=== PATIENT | male | born 1965 | race Caucasian/White ===

== ENCOUNTER 2016-12-27 06:41 | Inpatient (IN) | payer OTHER ==
[2016-12-27] MEDS ORDERED: ALBUTEROL NEB 2.5 MG/3 ML INH STA (07:23)
[2016-12-27] MEDS ORDERED: ALBUTEROL NEB 2.5 MG/3 ML INH ONE (07:33)
[2016-12-27] MEDS ORDERED: HYDROmorphone 1 MG/ML SYRINGE IVP STA ×2 (08:18→09:06)
[2016-12-27] MEDS ORDERED: HYDROmorphone 1 MG/ML SYRINGE ONE ×2 (08:19→09:05)
[2016-12-27] MEDS ORDERED: ONDANSETRON 4 MG/2 ML VIAL ONE (08:20)
[2016-12-27] MEDS ORDERED: ONDANSETRON 4 MG/2 ML VIAL IVP STA (08:20)
[2016-12-27] MEDS ORDERED: LORazepam 2 MG/ML SYRINGE IVP STA (09:06)
[2016-12-27] MEDS ORDERED: LORazepam 2 MG/ML SYRINGE ONE (09:06)
[2016-12-27] MEDS ORDERED: LIDOCAINE 1%-EPI 1:100000 20 ML MDV ONE (09:18)
[2016-12-27] MEDS ORDERED: NAPROXEN 250 MG TABLET PO PRN (10:04)
[2016-12-27] MEDS ORDERED: NYSTATIN CREAM 15 GM TUBE TOP PRN (10:04)
[2016-12-27] MEDS ORDERED: ACETAMINOPHEN 325 MG TABLET PO PRN (10:05)
[2016-12-27] MEDS ORDERED: ONDANSETRON 4 MG/2 ML VIAL IVP PRN (10:05)
[2016-12-27] MEDS ORDERED: oxyCODONE 5 MG TABLET PO PRN ×2 (10:05)
[2016-12-27] MEDS ORDERED: TRIAMCINOLONE 0.1% CREAM 15 GM TUBE TOP PRN (11:31)
[2016-12-27] MEDS ORDERED: LIDOCAINE 2% 10 ML MDV SUBQ ONE (11:35)
[2016-12-27] MEDS ORDERED: HYDROmorphone 1 MG/ML SYRINGE IVP ONE (11:35)
[2016-12-27] MEDS ORDERED: LIDOCAINE MPF 2%-EPI 1:200000 20 ML VIAL ID ONE ×2 (12:00)
[2016-12-27] MEDS: LISINOPRIL 5 MG TABLET PO SCH (12:48)
[2016-12-27] MEDS: INSULIN ASPART 300 UNIT/3 ML PEN SUBQ SCH ×3 (12:48→21:24)
[2016-12-27] MEDS: buPROPion XL 150 MG TABLET PO SCH (12:48)
[2016-12-27] MEDS: ASPIRIN EC 81 MG TABLET PO SCH (12:49)
[2016-12-27] MEDS: hydroCHLOROthiazide 25 MG TABLET PO SCH (12:49)
[2016-12-27] MEDS: ATENOLOL 25 MG TABLET PO SCH (12:49)
[2016-12-27] MEDS: SODIUM CHLORIDE FLUSH 0.9% 10 ML SYRINGE IVP SCH ×2 (13:15→21:25)
[2016-12-27] MEDS: MORPHINE 2 MG/ML SYRINGE IVP PRN ×2 (13:15→15:33)
[2016-12-27] MEDS: SODIUM CHLORIDE FLUSH 0.9% 10 ML SYRINGE IVP PRN ×4 (15:33→22:27)
[2016-12-27] MEDS: HYDROmorphone 1 MG/ML SYRINGE IVP PRN ×2 (16:29→22:27)
[2016-12-27] MEDS: FORMOTEROL FUMARATE NEB 20 MCG/2 ML INH SCH (19:35)
[2016-12-27] MEDS: BUDESONIDE 0.5 MG/2 ML NEB INH SCH (19:35)
[2016-12-27] MEDS: ATORVASTATIN 40 MG TABLET PO SCH (21:23)
[2016-12-28] MEDS: HYDROmorphone 1 MG/ML SYRINGE IVP PRN ×7 (00:40→22:32)
[2016-12-28] MEDS: PANTOPRAZOLE 40 MG TABLET PO SCH (06:31)
[2016-12-28] MEDS: SODIUM CHLORIDE FLUSH 0.9% 10 ML SYRINGE IVP SCH ×3 (06:32→20:52)
[2016-12-28] MEDS: FORMOTEROL FUMARATE NEB 20 MCG/2 ML INH SCH ×2 (07:10→20:00)
[2016-12-28] MEDS: BUDESONIDE 0.5 MG/2 ML NEB INH SCH ×2 (07:10→20:00)
[2016-12-28] MEDS: ALBUTEROL NEB 2.5 MG/3 ML INH PRN (07:10)
[2016-12-28] MEDS: INSULIN ASPART 300 UNIT/3 ML PEN SUBQ SCH ×4 (08:13→20:53)
[2016-12-28] MEDS: ceFAZolin 2 GM/50 ML 50 ML IV SCH ×2 (09:23→18:06)
[2016-12-28] MEDS ORDERED: TALC IX ONE (09:30)
[2016-12-28] MEDS: buPROPion XL 150 MG TABLET PO SCH (09:30)
[2016-12-28] MEDS ORDERED: BUFFERED LIDOCAINE 10 ML SYRINGE SUBQ ONE (09:30)
[2016-12-28] MEDS ORDERED: HYDROmorphone 1 MG/ML SYRINGE IVP ONE (09:30)
[2016-12-28] MEDS: ATENOLOL 25 MG TABLET PO SCH (09:31)
[2016-12-28] MEDS: LISINOPRIL 5 MG TABLET PO SCH (09:31)
[2016-12-28] MEDS: MULTIVITAMIN TABLET PO SCH (09:31)
[2016-12-28] MEDS: ENOXAPARIN 40 MG/0.4 ML SYRINGE SUBQ SCH (09:31)
[2016-12-28] MEDS: hydroCHLOROthiazide 25 MG TABLET PO SCH (09:31)
[2016-12-28] MEDS: ASPIRIN EC 81 MG TABLET PO SCH (09:31)
[2016-12-28] MEDS: POLYETHYLENE GLYCOL 3350 17 GM PACKET PO SCH (10:50)
[2016-12-28] MEDS: SODIUM CHLORIDE FLUSH 0.9% 10 ML SYRINGE IVP PRN (11:22)
[2016-12-28] MEDS: ATORVASTATIN 40 MG TABLET PO SCH (20:52)
[2016-12-29] MEDS: ceFAZolin 2 GM/50 ML 50 ML IV SCH ×2 (01:45→09:39)
[2016-12-29] MEDS: SODIUM CHLORIDE FLUSH 0.9% 10 ML SYRINGE IVP SCH ×3 (01:45→14:36)
[2016-12-29] MEDS: PANTOPRAZOLE 40 MG TABLET PO SCH (05:46)
[2016-12-29] MEDS: HYDROmorphone 1 MG/ML SYRINGE IVP PRN ×3 (05:46→14:35)
[2016-12-29] MEDS: ALBUTEROL NEB 2.5 MG/3 ML INH PRN (07:10)
[2016-12-29] MEDS: BUDESONIDE 0.5 MG/2 ML NEB INH SCH (07:10)
[2016-12-29] MEDS: INSULIN ASPART 300 UNIT/3 ML PEN SUBQ SCH (09:25)
[2016-12-29] MEDS: ASPIRIN EC 81 MG TABLET PO SCH (09:27)
[2016-12-29] MEDS: buPROPion XL 150 MG TABLET PO SCH (09:27)
[2016-12-29] MEDS: ATENOLOL 25 MG TABLET PO SCH (09:27)
[2016-12-29] MEDS: MULTIVITAMIN TABLET PO SCH (09:27)
[2016-12-29] MEDS: ENOXAPARIN 40 MG/0.4 ML SYRINGE SUBQ SCH (09:27)
[2016-12-29] MEDS: hydroCHLOROthiazide 25 MG TABLET PO SCH (09:28)
[2016-12-29] MEDS: LISINOPRIL 5 MG TABLET PO SCH (09:28)
[2016-12-29] MEDS: POLYETHYLENE GLYCOL 3350 17 GM PACKET PO SCH (09:28)
[2016-12-29] MEDS: SODIUM CHLORIDE FLUSH 0.9% 10 ML SYRINGE IVP PRN (10:26)
[2016-12-29] MEDS ORDERED: INSULIN ASPART 300 UNIT/3 ML PEN SUBQ SCH ×2 (12:30→17:00)
[2016-12-29] MEDS: FORMOTEROL FUMARATE NEB 20 MCG/2 ML INH SCH (15:33)
== END 2016-12-29 15:25 | disposition short-term general hospital (02) | DRG 201 ==
PROC: 0W9B30Z Drainage of Left Pleural Cavity with Drainage Device, Percutaneous Approach (ICD-10-PCS; principal; 2016-12-27)
DX: J93.83 Other pneumothorax (principal); E11.9 Type 2 diabetes mellitus without complications; J43.9 Emphysema, unspecified; I10 Essential (primary) hypertension; G47.33 Obstructive sleep apnea (adult) (pediatric); K21.9 Gastro-esophageal reflux disease without esophagitis; E78.5 Hyperlipidemia, unspecified; F32.9 Major depressive disorder, single episode, unspecified; K42.9 Umbilical hernia without obstruction or gangrene; Z87.891 Personal history of nicotine dependence; Z79.82 Long term (current) use of aspirin; Z79.899 Other long term (current) drug therapy; Z79.84 Long term (current) use of oral hypoglycemic drugs; Z79.51 Long term (current) use of inhaled steroids

== ENCOUNTER 2017-01-27 10:57 | Outpatient (CLI) | payer OTHER | END 2017-01-27 10:58 | disposition home or self-care (01) | DX: G47.33 Obstructive sleep apnea (adult) (pediatric) (principal) ==

== ENCOUNTER 2017-02-14 19:35 | Outpatient (CLI) | payer OTHER | END 2017-02-14 19:36 | disposition home or self-care (01) | DX: G47.33 Obstructive sleep apnea (adult) (pediatric) (principal); Z68.35 Body mass index [BMI] 35.0-35.9, adult ==

== ENCOUNTER 2017-03-04 15:36 | Outpatient (CLI) | payer OTHER | END 2017-03-04 15:37 | disposition home or self-care (01) | LOC: SC 15:36 | PROVIDERS: ATTEND Nurse Practitioner Family | DX: G47.33 Obstructive sleep apnea (adult) (pediatric) (principal) | CPT/HCPCS: 99212; 99214 ==

== ENCOUNTER 2017-03-06 08:15 | Outpatient (CLI) | payer OTHER ==
--- NOTE | 2017-03-06 10:14 | Ultrasound Report ---
LIMITED ABDOMINAL ULTRASOUND: 03/06/2017 CLINICAL HISTORY: The patient has elevated liver function tests. 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 FINDINGS: The liver appears mildly enlarged with a length of 20.7. The parenchymal pattern is consis tent with benign fatty infiltration of the liver. No masses are seen. Normal hepatopetal flow is seen in the portal vein. The gallbladder shows some areas of very slight wall thickening with the gallbladder wall measuring 4 .8 mm in these areas. There is no enhanced vascular flow about these areas. No calculi are detected w ithin the gallbladder. This mild irregular wall thickening most likely is of no clinical significance especially since patient is not tender in the right upper quadrant of the abdomen. The common bile duct has a normal diameter of 3.9 mm. The right kidney measures 13.5 cm without pyelocaliceal system dilatation. Tiny amount of right pleural fluid is seen. IMPRESSION: 1. MILD HEPATOMEGALY IS NOTED WITH THE PARENCHYMAL PATTERN CONSISTENT WITH BENIGN FATTY INFILTRATION. 2. TINY NONSPECIFIC RIGHT PLEURAL EFFUSION IS NOTED. JOB #: [id number] EXT JOB #:[id number]
== END 2017-03-06 08:16 | disposition home or self-care (01) ==
LOC: DI 08:15
PROVIDERS: ATTEND Internal Medicine
DX: R16.0 Hepatomegaly, not elsewhere classified (principal); J90 Pleural effusion, not elsewhere classified
CPT/HCPCS: 76705

== ENCOUNTER 2017-05-20 15:12 | Outpatient (CLI) | payer OTHER | END 2017-05-20 15:13 | disposition home or self-care (01) | LOC: SC 15:12 | PROVIDERS: ATTEND Nurse Practitioner Family | DX: G47.33 Obstructive sleep apnea (adult) (pediatric) (principal) | CPT/HCPCS: 99212; 99214 ==

== ENCOUNTER 2018-01-26 15:00 | Outpatient (CLI) | payer OTHER | END 2018-01-26 15:01 | disposition home or self-care (01) | LOC: SC 15:00 | PROVIDERS: ATTEND Internal Medicine Pulmonary Disease | DX: G47.33 Obstructive sleep apnea (adult) (pediatric) (principal) | CPT/HCPCS: 99212; 99213 ==

== ENCOUNTER 2018-05-27 14:33 | Outpatient (CLI) | payer OTHER ==
--- NOTE | 2018-05-27 22:10 | MRI Report ---
Procedure Date: 05/27/2018 Accession Number: [id number] / [id number] Procedure: MRI - Brain W/O CPT Code: FULL RESULT: EXAM: MRI BRAIN WITHOUT CONTRAST EXAM DATE: 05/27/2018 03:45 PM. CLINICAL HISTORY: 53-year-old with history of traumatic brain injury years ago now with headache COMPARISON: MR cervical spine 06/27/2006. TECHNIQUE: Multiplanar, multisequence T1-weighted and fluid-sensitive MR sequences of the brain were performed. Sequences optimized for routine evaluation. Other: None. IV Contrast: None. FINDINGS: Brain Volume: Normal for age. Parenchyma/Dura: No acute parenchymal hemorrhage, mass, or midline shift. There is minimal scattered bilateral areas of T2/FLAIR signal hyperintensity seen predominantly in a peripheral distribution. No areas of restricted diffusion seen to suggest acute infarct. No abnormal areas of hemosiderin deposition. Ventricles/Cisterns: Slight asymmetry to the lateral ventricles with a larger right lateral ventricle compared to left which may be physiologic. Overall ventricular size and configuration appear appropriate for age. No abnormal extra-axial fluid collection or hemorrhage. Orbits: Symmetric and unremarkable. Sella [place]: The pituitary gland, cavernous sinuses, suprasellar cistern and optic chiasm are unremarkable. IAC: Symmetric and unremarkable. Vasculature: Normal signal flow void is seen in the major arterial structures at the skull base. Sinuses: Small left maxillary mucosal retention cyst versus polyp. Mastoid air cells and middle ear cavities are clear. Bones: No focal pathologic appearing marrow signal changes. Other: None. IMPRESSION: 1. No acute infarct, intracranial hemorrhage, mass, hydrocephalus, or midline shift. 2. Minimal white matter changes seen predominantly involving the peripheral white matter of the frontal and parietal lobes. Findings are nonspecific and may represent sequela of prior migraines and/or sequela of chronic small vessel ischemic disease. RADIA
== END 2018-05-27 14:34 | disposition home or self-care (01) ==
LOC: DI 14:33
PROVIDERS: ATTEND Internal Medicine
DX: R51 Headache (principal)
CPT/HCPCS: 70551

== ENCOUNTER 2019-03-08 16:28 | Outpatient (CLI) | payer OTHER ==
--- NOTE | 2019-03-09 12:42 | MRI Report ---
Reason: PAIN IN RIGHT HIP Procedure Date: 03/08/2019 Accession Number: [id number] / [id number] Procedure: MRI - Hip RT W/O CPT Code: FULL RESULT: EXAM: RIGHT HIP MRI WITHOUT CONTRAST EXAM DATE: 03/08/2019 05:21 PM. CLINICAL HISTORY: Pain in right hip. COMPARISON: None. TECHNIQUE: Multiplanar, multisequence T1-weighted and fluid-sensitive, small fyezt-vu-wkiw sequences of the hip and large qfmsd-[id number]-gtok sequences of the pelvis without contrast. Other: None. FINDINGS: Bones and articular surfaces: No significant hip joint effusion. Mild cartilage thinning and surface irregularity in the right hip superiorly. Small amount of subchondral edema at the superior acetabulum. High signal within the substance of the superior labrum without appreciable articular surface extension. No evidence of acute fracture or stress reaction. No evidence of femoral head AVN. Sacroiliac joints appear symmetric and unremarkable. Pubic symphysis unremarkable. Musculotendinous structures: Edema and fluid signal associated with the distal fibers of the right gluteus medius consistent with tendinosis and small low-grade partial tear. There is also a small amount of edema and some soft tissue calcification associated with the right gluteus minimus insertion. Remaining musculotendinous structures appear intact. No significant muscle atrophy. IMPRESSION: 1. Tendinosis and low-grade partial tear at the right gluteus medius insertion. Mild tendinosis at the gluteus minimus insertion. 2. Mild right hip osteoarthritis. 3. Increased intrasubstance signal within the superior labrum may reflect intrasubstance degeneration. No definite articular surface extension. RADIA
== END 2019-03-08 16:29 | disposition home or self-care (01) ==
LOC: DI 16:28
PROVIDERS: ATTEND Internal Medicine
DX: M16.11 Unilateral primary osteoarthritis, right hip (principal); S76.011A Strain of muscle, fascia and tendon of right hip, initial encounter

== ENCOUNTER 2019-03-12 14:24 | Emergency (ER) | payer OTHER ==
--- NOTE | 2019-03-12 14:47 | ED Physician Documentation ---
PD HPI DYSPNEA - Stated complaint Stated Complaint: SOA/RIB PX - Chief complaint Chief Complaint: Resp - History obtained from History obtained from: Patient, Family - History of Present Illness Timing - onset: Yesterday (4 PM) Timing - onset during: Rest Timing - duration: Days (1) Timing - details: Abrupt onset Associated symptoms: Chest pain / discomfort. No: Fever, Cough, Hemoptysis, Wheezing, Palpitations, Diaphoresis, Bilateral edema, Anxiety Similar symptoms before: Diagnosis (History of spontaneous pneumothorax in the past. Most recent was April 2017. He actually had to be transferred to [facility] at that time because the lung would not inflate after the initial chest tube was placed and they had to place a second chest tube.) Recently seen: Not recently seen - Additional information Additional information: This is a 53-year-old man who presents with his complains that he had the sudden onset of sharp left sided chest pain about 4 PM yesterday. It feels just like when he had a spontaneous pneumothorax in the past. He said 5 on the left and one on the right. Feels mildly short of breath and it hurts to take a deep breath. He denies any preceding symptoms of stuffy nose or sore throat. He does have emphysema uses inhalers when necessary. He quit smoking 10 years ago. He denies current palpitations, dizziness, peripheral edema or fever. Denies history of heart disease. Review of Systems Constitutional: denies: Fever Nose: denies: Rhinorrhea / runny nose, Congestion Cardiac: reports: Chest pain / pressure. denies: Palpitations, Pedal edema Respiratory: reports: Dyspnea. denies: Cough GI: denies: Nausea PD PAST MEDICAL HISTORY - Past Medical History Cardiovascular: Hypertension, High cholesterol Respiratory: COPD, Emphysema, Other Endocrine/Autoimmune: Type 2 diabetes GI: GERD : None HEENT: None Psych: None Musculoskeletal: None Derm: None - Past Surgical History Past Surgical History: No - Present Medications Home Medications: Ambulatory Orders Medication Instructions Recorded Confirmed Albuterol [Ventolin Hfa] 2 puffs INH PRN PRN 12/28/13 03/12/19 Atenolol [Tenormin] 25 mg PO DAILY 12/28/13 03/12/19 Atorvastatin Calcium [Lipitor] 40 mg PO QPM 12/28/13 03/12/19 hydroCHLOROthiazide [Hydrodiuril] 25 mg PO DAILY 12/28/13 03/12/19 Aspirin [Aspir 81] 81 mg PO DAILY 07/04/15 03/12/19 Sitagliptin Phos/Metformin HCl 1 tab PO BID 05/07/16 03/12/19 [Janumet 50-1,000 mg Tablet] Fluticasone/Salmeterol [Advair 50 - 250 mcg INH BID 05/08/16 03/12/19 250-50 Diskus] Lisinopril 5 mg PO DAILY 05/08/16 03/12/19 Multivitamin [Multivitamins] 1 tab PO DAILY 05/08/16 03/12/19 Nystatin/Triamcin 1 applic TOP . NEEDED PRN 05/08/16 03/12/19 [Nystatin-Triamcinolone Ointm] Naproxen 500 mg PO BID PRN #30 tablet. 05/16/16 03/12/19 Aspirin Chewable [[place] 81 mg PO DAILY 03/12/19 03/12/19 Aspirin] Dulaglutide [Trulicity] 1.5 mg SQ OAW 03/12/19 03/12/19 Empagliflozin [Jardiance] 10 mg PO DAILY 03/12/19 03/12/19 Insulin Glargine [Lantus Solostar] 45 unit SQ BID 03/12/19 03/12/19 Ipratropium/Albuterol Sulfate 3 ml IH PRN PRN 03/12/19 03/12/19 [Iprat-Albut 0.5-3(2.5) mg/3 ml] Pantoprazole Sodium [Protonix] 20 mg PO DAILY 03/12/19 03/12/19 Tiotropium [place] [Spiriva 2.5 mcg PO DAILY 03/12/19 03/12/19 Respimat] traMADol [Ultram] 50 mg PO Q4-6H #10 tablet 03/12/19 - Allergies Allergies/Adverse Reactions: Allergies Allergy/AdvReac Type Severity Reaction Status Date / Time No Known Drug Allergies Allergy Verified 03/12/19 14:37 - Social History Does the pt smoke?: No Smoking Status: Former smoker Does the pt drink ETOH?: Yes Does the pt have substance abuse?: No - Immunizations Immunizations are current?: Yes - POLST Patient has POLST: No PD ED PE NORMAL - Vitals Vital signs reviewed: Yes - General General: Alert and oriented X 3, No acute distress, Well developed/nourished - HEENT HEENT: Atraumatic, Moist mucous membranes - Neck Neck: No adenopathy - Cardiac Cardiac: RRR, No murmur - Respiratory Respiratory: No respiratory distress, Other (Diminished breath sounds at the apices bilaterally.) - Abdomen Abdomen: Normal bowel sounds, Soft, Non tender - Derm Derm: Normal color, No rash - Neuro Neuro: Alert and oriented X 3, Normal speech - Psych Psych: Normal mood, Normal affect Results - Vitals Vitals: Vital Signs - 24 hr 03/12/19 03/12/19 03/12/19 14:34 14:43 15:05 Temperature 36.0 C L Heart Rate 76 76 82 Respiratory 16 16 20 Rate Blood Pressure 124/77 124/77 124/90 H O2 Saturation 91 L 94 94 03/12/19 03/12/19 03/12/19 15:30 16:00 16:30 Temperature Heart Rate 70 66 71 Respiratory 12 14 12 Rate Blood Pressure 124/90 H 119/72 127/74 O2 Saturation 93 93 92 Oxygen O2 Source Room air - EKG (time done) 1432 Rate: Rate (enter#) Rhythm: NSR [place]: RAD Intervals: Normal [place], Wide QRS QRS: Normal Ischemia: Normal ST segments Compare to prior EKG: Unchanged from prior EKG - Labs Labs: Laboratory Tests 03/12/19 03/12/19 03/12/19 14:55 14:55 14:55 WBC 5.3 RBC 4.47 L Hgb 14.8 Hct 42.2 MCV 94.3 H MCH 33.0 H MCHC 35.0 RDW 13.9 Plt Count 116 L MPV 8.2 Neut # (Auto) 3.0 Lymph # (Auto) 1.7 [place] # (Auto) 0.4 Eos # (Auto) 0.1 Baso # (Auto) 0.0 Absolute Nucleated RBC 0.00 Nucleated RBC % 0.1 PT 13.5 H INR 1.2 Sodium 136 Potassium 4.0 Chloride 100 L Carbon Dioxide 22 Anion Gap 14.0 H BUN 14 Creatinine 0.9 Estimated GFR (MDRD) 88 L Glucose 243 H Calcium 9.2 Troponin I 03/12/19 14:55 WBC RBC Hgb Hct MCV MCH MCHC RDW Plt Count MPV Neut # (Auto) Lymph # (Auto) [place] # (Auto) Eos # (Auto) Baso # (Auto) Absolute Nucleated RBC Nucleated RBC % PT INR Sodium Potassium Chloride Carbon Dioxide Anion Gap BUN Creatinine Estimated GFR (MDRD) Glucose Calcium Troponin I < 0.04 - Rads (name of study) CXR Radiology: EMP read indepedently, EMP read contemporaneously (Hyperinflated lungs with some flattening of the diaphragms but no obvious pneumothorax. There are some blebs noted in the apices of both lungs.) PD MEDICAL DECISION MAKING - ED course Complexity details: re-evaluated patient, d/w patient, d/w family ED course: 1513: The x-ray does not show a clear indication of any pneumothorax. Especially compared to the one 2 years ago the pneumothorax was clearly evident. Went back into discuss this with the family and he mentioned that he had an MRI done on his hip a couple of days ago and had to lay there with his arms up over his head. He notices the pain hurts to touch and movement of that left arm. He definitely has some point tenderness along the left lateral anterior chest wall. He has not taken any naproxen today we will give him an injection of Toradol which is been tremendously helpful in the past and waiting the official radiology report. Of note I did review this patient's previous records and he has had significant blebs and loculations with pneumothorax in the past. Most recently he was transferred to [facility] in 2017 to have cardiothoracic surgery place a chest tube under video visualization. 1632:Patient's initial troponin is negative. His glucose is a little elevated but CBC and BMP are essentially normal. He was given Toradol injection and said that the pain is essentially gone when he is moving his arm around still little tender to touch. We discussed getting a 3-hour troponin which she initially agreed to. subsequently called me back into the room and stated he did not want to stay he wanted to be discharged. After discussion with him he feels pretty certain that this pain is muscular skeletal in origin. His initial troponin is normal and the pain has been there for longer than 4-hour. So I feel that it would be safe for him to be discharged home at this time and will not ask him to sign out AGAINST MEDICAL ADVICE even though he is declining further work-up at this time.He can use his Aleve at home. They did request a prescription for tramadol and I will give a limited supply.He should avoid activity that causes pain. Departure - Departure Disposition: 01 Home, Self Care Clinical Impression: Atypical chest pain Condition: Good Instructions: ED Chest Pain Atypical Unkn Cause Follow-Up: ROBERT RAMOS MD [Primary Care Provider] - Prescriptions: traMADol [Ultram] 50 mg PO Q4-6H #10 tablet Comments: You have declined to stay for a repeat troponin test. Your pain appears to be related to musculoskeletal at this time. I would take the Aleve you have at home twice a day for the next 2 to 3 days, avoid any activity that causes discomfort and you have a prescription for a few tramadol tablets if needed that can be taken for pain. If you begin to experience shortness of breath, sweatiness, dizziness or nausea associated with this she should return for reevaluation.
[2019-03-12] MEDS ORDERED: MORPHINE 2 MG/ML SYRINGE IVP STA (15:00)
[2019-03-12] MEDS ORDERED: ONDANSETRON 4 MG/2 ML VIAL IVP STA (15:00)
[2019-03-12 15:08] LABS: BASOPHILS % (AUTO) 0.4 %; EOSINOPHILS # (AUTO) 0.1 10^3/uL (0.0-0.7); EOSINOPHILS % (AUTO) 2.6 %; HGB - HEMOGLOBIN 14.8 g/dL (14.0-18.0); LYMPHOCYTES # (AUTO) 1.7 10^3/uL (1.5-3.5); MEAN CORPUSCULAR VOLUME 94.3 fL (80.0-94.0); MEAN PLATELET VOLUME 8.2 fL (7.4-11.4); MONOCYTES # (AUTO) 0.4 10^3/uL (0.0-1.0); MONOCYTES % (AUTO) 8.4 %; NEUTROPHILS % (AUTO) 56.6 %; PLT - PLATELET COUNT 116 10^3/uL (130-450); RED BLOOD COUNT 4.47 10^6/uL (4.70-6.10); RED CELL DISTRIBUTION WIDTH 13.9 % (12.0-15.0); WHITE BLOOD COUNT 5.3 x10^3/uL (4.8-10.8)
[2019-03-12 15:11] LABS: CALCIUM 9.2 mg/dL (8.5-10.3); CREATININE 0.9 mg/dL (0.6-1.2)
[2019-03-12] MEDS ORDERED: KETOROLAC 30 MG/ML VIAL IVP STA (15:12)
--- NOTE | 2019-03-12 15:13 | XRAY Report ---
Reason: chest pain Procedure Date: 03/12/2019 Accession Number: [id number] / [id number] Procedure: XR - Chest 1 View X-Ray CPT Code: 11717 FULL RESULT: EXAM: CHEST RADIOGRAPHY EXAM DATE: 03/12/2019 03:05 PM. CLINICAL HISTORY: Chest pain. COMPARISON: CHEST 2 VIEW PA/LAT 12/28/2016 9:48 AM. TECHNIQUE: 1 view. FINDINGS: Lungs/Pleura: Bilateral areas of scarring. Biapical pleural thickening. No focal opacities evident. No pleural effusion. Hyperlucent lung deng with flattened hemidiaphragms. Mediastinum: Within exam limitations, the cardiomediastinal contour is normal. Other: DJD spine IMPRESSION: COPD RADIA
[2019-03-12 15:15] LABS: INR 1.2 (0.8-1.2); PT - PROTHROMBIN TIME 13.5 secs (9.9-12.6)
[2019-03-12 16:32] VITALS: BP 127/74
== END 2019-03-12 16:41 | disposition home or self-care (01) ==
LOC: ED 14:24
DX: R07.89 Other chest pain (principal); I10 Essential (primary) hypertension; E78.00 Pure hypercholesterolemia, unspecified; J43.9 Emphysema, unspecified; E11.9 Type 2 diabetes mellitus without complications; K21.9 Gastro-esophageal reflux disease without esophagitis; Z79.51 Long term (current) use of inhaled steroids; Z79.82 Long term (current) use of aspirin; Z79.4 Long term (current) use of insulin; Z87.891 Personal history of nicotine dependence
CPT/HCPCS: 36415; 71045; 80048; 84484; 85025; 85610; 93005; 96374; 96375; 99283; 99284; J2270

== ENCOUNTER 2020-02-13 17:27 | Emergency (ER) | payer OTHER ==
--- NOTE | 2020-02-13 18:12 | XRAY Report ---
Reason: chest pain, R sided. history of spontaneous ptx. Procedure Date: 02/13/2020 Accession Number: [id number] / [id number] Procedure: XR - Chest 1 View X-Ray CPT Code: 08851 Final Report FULL RESULT: EXAM: CHEST RADIOGRAPHY EXAM DATE: 02/13/2020 05:59 PM. CLINICAL HISTORY: Chest pain, R sided. history of spontaneous ptx. COMPARISON: CHEST 1 VIEW 03/12/2019 2:51 PM. TECHNIQUE: 1 view. FINDINGS: Lungs/Pleura: There is a linear bandlike density of scar in the right apex. Negative for pneumothorax. There are increasing layering basilar opacities. Mediastinum: The heart size appears unchanged. The trachea is midline. Other: None. IMPRESSION: 1. Suspicious for developing layering basilar pleural effusions. 2. Negative for pneumothorax. 3. Apical emphysema and/or scarring. RADIA
--- NOTE | 2020-02-13 18:43 | ED Physician Documentation ---
History of Present Illness - Stated complaint Stated Complaint: LT SIDE PAIN - Chief complaint Chief Complaint: Cardiac - History obtained from History obtained from: Patient - History of Present Illness Timing: How many weeks ago (2) Pain level max: 8 Pain level now: 7 - Additonal information Additional information: 54-year-old male presents the emergency department with right-sided chest wall and back pain for the past 2 weeks. Has a history of bullous emphysema and is concerned that he may have another pneumothorax. Worse with deep breathing. Better with rest. Tramadol helps as well. He is now out of tramadol. No vomiting. No dyspnea. No nausea. No sweating. No fever. No cough Review of Systems Constitutional: denies: Fever, Chills Ears: denies: Ear pain Nose: denies: Rhinorrhea / runny nose, Congestion Respiratory: denies: Cough GI: denies: Vomiting, Diarrhea Skin: denies: Rash Musculoskeletal: denies: Neck pain, Back pain Neurologic: denies: Headache PD PAST MEDICAL HISTORY - Past Medical History Cardiovascular: Hypertension, High cholesterol Respiratory: COPD, Emphysema, Other Endocrine/Autoimmune: Type 2 diabetes GI: GERD : None HEENT: None Psych: None Musculoskeletal: None Derm: None Other Past Medical History: Spontaneous pneumothorax x6 - Past Surgical History Past Surgical History: No - Present Medications Home Medications: Ambulatory Orders Medication Instructions Recorded Confirmed Albuterol [Ventolin Hfa] 2 puffs INH PRN PRN 12/28/13 03/12/19 Atorvastatin Calcium [Lipitor] 40 mg PO QPM 12/28/13 03/12/19 atenoloL [Tenormin] 25 mg PO DAILY 12/28/13 03/12/19 hydroCHLOROthiazide [Hydrodiuril] 25 mg PO DAILY 12/28/13 03/12/19 Aspirin [Aspir 81] 81 mg PO DAILY 07/04/15 03/12/19 Sitagliptin Phos/Metformin HCl 1 tab PO BID 05/07/16 03/12/19 [Janumet 50-1,000 mg Tablet] Fluticasone/Salmeterol [Advair 50 - 250 mcg INH BID 05/08/16 03/12/19 250-50 Diskus] Multivitamin [Multivitamins] 1 tab PO DAILY 05/08/16 03/12/19 Nystatin/Triamcin 1 applic TOP . NEEDED PRN 05/08/16 03/12/19 [Nystatin-Triamcinolone Ointm] lisinopriL [Lisinopril] 5 mg PO DAILY 05/08/16 03/12/19 Naproxen 500 mg PO BID PRN #30 tablet. 05/16/16 03/12/19 Aspirin Chewable [[place] 81 mg PO DAILY 03/12/19 03/12/19 Aspirin] Dulaglutide [Trulicity] 1.5 mg SQ OAW 03/12/19 03/12/19 Empagliflozin [Jardiance] 10 mg PO DAILY 03/12/19 03/12/19 Insulin Glargine [Lantus Solostar] 45 unit SQ BID 03/12/19 03/12/19 Ipratropium/Albuterol Sulfate 3 ml IH PRN PRN 03/12/19 03/12/19 [Iprat-Albut 0.5-3(2.5) mg/3 ml] Pantoprazole Sodium [Protonix] 20 mg PO DAILY 03/12/19 03/12/19 Tiotropium [place] [Spiriva 2.5 mcg PO DAILY 03/12/19 03/12/19 Respimat] traMADol [Ultram] 50 mg PO Q4-6H #10 tablet 03/12/19 traMADol [Ultram] 50 mg PO Q4-6H PRN #10 tablet 02/13/20 - Allergies Allergies/Adverse Reactions: Allergies Allergy/AdvReac Type Severity Reaction Status Date / Time No Known Drug Allergies Allergy Verified 02/13/20 17:36 - Social History Does the pt smoke?: No Smoking Status: Never smoker Does the pt drink ETOH?: Yes Does the pt have substance abuse?: No - Immunizations Immunizations are current?: Yes - POLST Patient has POLST: No PD ED PE NORMAL - Vitals Vital signs reviewed: Yes - General General: Alert and oriented X 3, No acute distress - HEENT HEENT: Moist mucous membranes - Neck Neck: Supple, no meningeal sign - Cardiac Cardiac: RRR, Strong equal pulses, Other (Tender to palpation across the anterior chest wall in the upper back. Reproduces his pain. No crepitus. No ecchymosis.) - Respiratory Respiratory: No respiratory distress, Clear bilaterally - Abdomen Abdomen: Soft, Non tender, Non distended - Derm Derm: Warm and dry - Neuro Neuro: Alert and oriented X 3 - Psych Psych: Normal mood, Normal affect Results - Vitals Vitals: Vital Signs - 24 hr 02/13/20 02/13/20 17:36 18:51 Temperature 36.3 C L 36.9 C Heart Rate 78 77 Respiratory 20 18 Rate Blood Pressure 115/73 121/81 H O2 Saturation 96 94 Oxygen O2 Source Room air - Rads (name of study) Chest x-ray Radiology: Prelim report reviewed, EMP read contemporaneously, See rad report (Suspicious for developing layering basilar pleural effusions. 2. Negative for pneumothorax. 3. Apical emphysema and/or scarring.) PD MEDICAL DECISION MAKING - ED course Complexity details: reviewed results, re-evaluated patient, considered differential, d/w patient ED course: 54-year-old male with atypical chest pain on the right, and no pneumothorax. Does have some basilar pleural effusions. We will have him follow-up closely with his doctor for this. He states he is out of his tramadol and we will prescribe a small amount for him. No evidence of acute coronary syndrome. No evidence of pulmonary embolus. Patient counseled regarding signs and symptoms for which I believe and urgent re-evaluation would be necessary. Patient with good understanding of and agreement to plan and is comfortable going home at this time This document was made in part using voice recognition software. While efforts are made to proofread this document, sound alike and grammatical errors may occur. Departure - Departure Disposition: 01 Home, Self Care Clinical Impression: Chest wall pain, Bullous emphysema, Pleural effusion Condition: Good Instructions: ED Effusion Pleural Follow-Up: SIMONE DELEON MD [Primary Care Provider] - Within 1 week Prescriptions: traMADol [Ultram] 50 mg PO Q4-6H PRN #10 tablet PRN Reason: Chest wall pain Comments: Follow-up with your doctor for further care. Return if you worsen. Do not drive or operate heavy machinery while taking the tramadol. Do not drink alcohol or drive while on narcotic pain medicine. Note that many narcotic pain relievers also contain tylenol/acetaminophen. Please ensure that your total dose of acetaminophen from all sources does not exceed 3 grams (3000mg) per day. You may constipated on this medication, take a stool softener such as "Colace" twice a day while you are on it. Also recommend a bfbu-ncx-upissel laxative such as senna or MiraLAX any day that you do not have a bowel movement. If you received narcotic pain medication in the emergency department, do not drive or operate machinery for the next 24 hours. Discharge Date/Time: 02/13/20 18:51
[2020-02-13 18:53] VITALS: BP 121/81
== END 2020-02-13 18:51 | disposition home or self-care (01) ==
LOC: ED 17:27
DX: J90 Pleural effusion, not elsewhere classified (principal); J43.9 Emphysema, unspecified; I10 Essential (primary) hypertension; E11.9 Type 2 diabetes mellitus without complications; Z79.4 Long term (current) use of insulin
CPT/HCPCS: 71045; 99283; 99284

== ENCOUNTER 2022-11-11 12:46 | Emergency (ER) | payer OTHER ==
[2022-11-11 13:29] LABS: BASOPHILS % (AUTO) 0.3 %; EOSINOPHILS # (AUTO) 0.1 10^3/uL (0.0-0.7); EOSINOPHILS % (AUTO) 0.7 %; HCT - HEMATOCRIT 46.1 % (42.0-52.0); HGB - HEMOGLOBIN 15.3 g/dL (14.0-18.0); LYMPHOCYTES # (AUTO) 1.2 10^3/uL (1.5-3.5); LYMPHOCYTES % (AUTO) 13.2 %; MEAN CORPUSCULAR HEMOGLOBIN 31.2 pg (27.0-31.0); MEAN CORPUSCULAR HGB CONC 33.2 g/dL (32.0-36.0); MEAN CORPUSCULAR VOLUME 93.9 fL (80.0-94.0); MEAN PLATELET VOLUME 9.8 fL (7.4-11.4); MONOCYTES # (AUTO) 0.7 10^3/uL (0.0-1.0); MONOCYTES % (AUTO) 7.8 %; NEUTROPHILS % (AUTO) 77.6 %; PLT - PLATELET COUNT 130 10^3/uL (130-450); RED BLOOD COUNT 4.91 10^6/uL (4.70-6.10); RED CELL DISTRIBUTION WIDTH 13.4 % (12.0-15.0)
[2022-11-11 13:42] LABS: ALBUMIN 4.2 g/dL (3.2-5.5); ALBUMIN/GLOBULIN RATIO 1.1 (1.0-2.2); BILIRUBIN,TOTAL 1.3 mg/dL (0.2-1.0); CALCIUM 9.5 mg/dL (8.5-10.3); CREATININE 0.8 mg/dL (0.6-1.2); POTASSIUM 3.5 mmol/L (3.5-5.0); TOTAL PROTEIN 7.9 g/dL (6.7-8.2)
--- NOTE | 2022-11-11 14:01 | XRAY Report ---
PROCEDURE: Chest 1 View X-Ray INDICATIONS: Chest pain TECHNIQUE: One view of the chest was acquired. COMPARISON: 02/13/2020 FINDINGS: Surgical changes and devices: None. Lungs and pleura: Bibasilar opacities, mostly linear. There is a thicker band in the left lower lobe . Mediastinum: Mediastinal contours appear normal. Heart size is normal. Bones and chest wall: No suspicious bony lesions. Overlying soft tissues appear unremarkable. IMPRESSION: Suspected bibasilar scarring/atelectasis, with a thicker band in the left lower lobe. Differential in cludes aspiration or infection. No dense consolidation or pleural effusion. Consider future imaging s urveillance to assess for resolution. Reviewed by: Iraj Prakash MD on 11/11/2022 1:59 PM PST Approved by: Iraj Prakash MD on 11/11/2022 1:59 PM PST Station ID: [id number]
--- OUTSIDE RECORDS SUMMARY | 2022-11-11 14:29 | EXTERNAL MEDICAL SUMMARY RPT | Continuity of Care Document ---
:1965 Author Organization [facility] Address [address] [place] [address] Phone Care Team Providers Name Role Phone Danyell Lion Unavailable Unavailable Allergies No information. Encounters No information. Functional Status No information. Immunizations No information. Medications date description facility 2022-09-17 00:00 Ipratropium-Albuterol [facility] 2022-09-17 00:00 Tiotropium [facility] 2022-09-17 00:00 Albuterol Sulfate [facility] 2022-09-17 00:00 Fluticasone Propionate [facility] 2022-09-17 00:00 Atenolol [facility] 2022-09-17 00:00 Azathioprine [facility] 2022-09-17 00:00 Pantoprazole [facility] 2022-09-17 00:00 Gabapentin [facility] 2022-09-17 00:00 Insulin Glargine [facility] Problems No information. Procedures No information. Results/Labs test date author facility value unit interpret ation Result panel 1 (unknown) (no (unknown) (unknown) (no value) (units (unk nown) date) unknown) (unknown) (no (unknown) (unknown) [id number] (units (unkn own) date) unknown) (unknown) (no (unknown) (unknown) 09/17/22 (units (unkno wn) date) unknown) (unknown) (no (unknown) (unknown) Age/Sex: 57 / M (units (unknown) date) Date of Service: unknown) (unknown) (no (unknown) (unknown) Allergies (units (unkn own) date) unknown) (unknown) (no (unknown) (unknown) RUTHANN Flynn (units ( unknown) date) [id number] unknown) (unknown) (no (unknown) (unknown) Attending Dr: (units ( unknown) date) Kip Garza MD unknown) (unknown) (no (unknown) (unknown) : 1965 (units (unknown) date) Acct:[id number] unknown) (unknown) (no (unknown) (unknown) Dept at (units (unkno wn) date) . unknown) (unknown) (no (unknown) (unknown) Documented By: (units (unknown) date) Kip Garza MD unknown) 09/17/22 1057 (unknown) (no (unknown) (unknown) Draft (units (unkno wn) date) unknown) (unknown) (no (unknown) (unknown) Intake (units (unkno wn) date) unknown) (unknown) (no (unknown) (unknown) [facility] (units (unknown) date) unknown) (unknown) (no (unknown) (unknown) Loc: [facility] (units (unkno wn) date) unknown) (unknown) (no (unknown) (unknown) No Known Drug (units ( unknown) date) Allergies Allergy unknown) (Verified 09/17/22 10:57) (unknown) (no (unknown) (unknown) PFSH (units (unkno wn) date) unknown) (unknown) (no (unknown) (unknown) Patient: (units (unkno wn) date) Rohit Glass Moises unknown) MR#: M (unknown) (no (unknown) (unknown) Reason For Visit (units (unknown) date) unknown) (unknown) (no (unknown) (unknown) Signed By: (units (unk nown) date) unknown) (unknown) (no (unknown) (unknown) Smoking Status: (units (unknown) date) Former smoker unknown) (unknown) (no (unknown) (unknown) Social History (units (unknown) date) unknown) (unknown) (no (unknown) (unknown) Surgery Office (units (unknown) date) Visit unknown) (unknown) (no (unknown) (unknown) This note may (units ( unknown) date) have been all or unknown) partially generated using voice recognition (unknown) (no (unknown) (unknown) Tobacco Status (units (unknown) date) unknown) (unknown) (no (unknown) (unknown) 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 (units (unknown) date) If there are any unknown) questions, please contact the Medical Records (unknown) (no (unknown) (unknown) household (units (unkn own) date) members: spouse unknown) (unknown) (no (unknown) (unknown) may occur. (units (unk nown) date) Occasional unknown) wrong-word or 'sound-alike' substitutions may have (unknown) (no (unknown) (unknown) occurred due to (units (unknown) date) the inherent unknown) limitations of voice recognition software. Please (unknown) (no (unknown) (unknown) read the note (units ( unknown) date) carefully and unknown) recognize, using context, where these substitutions (unknown) (no (unknown) (unknown) software. 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 Result panel 2 (unknown) (no (unknown) (unknown) (no value) (units (unk nown) date) unknown) (unknown) (no (unknown) (unknown) [id number] (units (unkn own) date) unknown) (unknown) (no (unknown) (unknown) 09/17/22 [History (units (unknown) date) Confirmed 09/17/22] unknown) (unknown) (no (unknown) (unknown) 09/17/22 (units (unkno wn) date) unknown) (unknown) (no (unknown) (unknown) 09/17/22] (units (unkn own) date) unknown) (unknown) (no (unknown) (unknown) ASPIRIN (#ASPIR 81) (unit s (unknown) date) 81 mg PO Q DAY ##0 unknown) 06/15/12 [History Confirmed 09/17/22] (unknown) (no (unknown) (unknown) Age/Sex: 57 / M Date (uni ts (unknown) date) of Service: unknown) (unknown) (no (unknown) (unknown) Allergies (units (unkn own) date) unknown) (unknown) (no (unknown) (unknown) RUTHANN Flynn [id number] (unit s (unknown) date) unknown) (unknown) (no (unknown) (unknown) Attending Dr: Kip Mccracken (uni ts (unknown) date) Greg JOHANSEN unknown) (unknown) (no (unknown) (unknown) Autoimmune hepatitis (uni ts (unknown) date) unknown) (unknown) (no (unknown) (unknown) COPD (chronic (units ( unknown) date) obstructive pulmonary unknown) disease) (unknown) (no (unknown) (unknown) Chronic liver (units ( unknown) date) disease and cirrhosis unknown) (unknown) (no (unknown) (unknown) Confirmed 09/17/22] (unit s (unknown) date) unknown) (unknown) (no (unknown) (unknown) DAY ##0 06/15/12 (units (unknown) date) [History Confirmed unknown) 09/17/22] (unknown) (no (unknown) (unknown) : 1965 (units (unknown) date) Acct:[id number] unknown) (unknown) (no (unknown) (unknown) Dept at (units (unkno wn) date) . unknown) (unknown) (no (unknown) (unknown) Diabetes mellitus (units (unknown) date) unknown) (unknown) (no (unknown) (unknown) Diabetes (units (unkno wn) date) unknown) (unknown) (no (unknown) (unknown) Documented By: (units (unknown) date) Kip Garza MD unknown) 09/17/22 1057 (unknown) (no (unknown) (unknown) Draft (units (unkno wn) date) unknown) (unknown) (no (unknown) (unknown) Family History (units (unknown) date) (Reviewed 09/17/22 @ unknown) 11:32 by Barby Ojeda MA) (unknown) (no (unknown) (unknown) Father Hypertension (unit s (unknown) date) unknown) (unknown) (no (unknown) (unknown) Heart disease (units ( unknown) date) unknown) (unknown) (no (unknown) (unknown) History of lung (units (unknown) date) surgery unknown) (unknown) (no (unknown) (unknown) Hyperlipemia (units (u nknown) date) unknown) (unknown) (no (unknown) (unknown) Hypertension (units (u nknown) date) unknown) (unknown) (no (unknown) (unknown) Insulin) 45 unit (units (unknown) date) SUBCUT BID 07/09/22 unknown) [History Confirmed 09/17/22] (unknown) (no (unknown) (unknown) Intake (units (unkno wn) date) unknown) (unknown) (no (unknown) (unknown) Is patient in pain?: (uni ts (unknown) date) No unknown) (unknown) (no (unknown) (unknown) [facility] (units (unknown) date) unknown) (unknown) (no (unknown) (unknown) Loc: [facility] (units (unkno wn) date) unknown) (unknown) (no (unknown) (unknown) Medical History (units (unknown) date) (Reviewed 09/17/22 @ unknown) 11:32 by Barby Ojeda MA) (unknown) (no (unknown) (unknown) Medications (units (un known) date) unknown) (unknown) (no (unknown) (unknown) Metformin (units (unkn own) date) Hydrochloride unknown) (GLUCOPHAGE) 2,000 mg PO BIDCC ##0 06/14/12 [History (unknown) (no (unknown) (unknown) Multivitamin, (units ( unknown) date) Minerals, and unknown) (#CENTRUM SILVER) 1 tab PO Q DAY ##0 06/15/12 (unknown) (no (unknown) (unknown) Neuropathy (units (unk nown) date) unknown) (unknown) (no (unknown) (unknown) No Known Drug (units ( unknown) date) Allergies Allergy unknown) (Verified 09/17/22 11:13) (unknown) (no (unknown) (unknown) PFSH (units (unkno wn) date) unknown) (unknown) (no (unknown) (unknown) Pain Scale (units (unk nown) date) unknown) (unknown) (no (unknown) (unknown) Patient: (units (unkno wn) date) Rohit Glass Moises unknown) MR#: M (unknown) (no (unknown) (unknown) Reason For Visit (units (unknown) date) unknown) (unknown) (no (unknown) (unknown) Signed By: (units (unk nown) date) unknown) (unknown) (no (unknown) (unknown) Sleep apnea (units (un known) date) unknown) (unknown) (no (unknown) (unknown) Smoking Status: (units (unknown) date) Former smoker unknown) (unknown) (no (unknown) (unknown) Social History (units (unknown) date) (Reviewed 09/17/22 @ unknown) 11:32 by Barby Ojeda MA) (unknown) (no (unknown) (unknown) Surgery Office Visit (uni ts (unknown) date) unknown) (unknown) (no (unknown) (unknown) Surgical History (units (unknown) date) (Reviewed 09/17/22 @ unknown) 11:32 by Barby Ojeda MA) (unknown) (no (unknown) (unknown) This note may have (units (unknown) date) been all or partially unknown) generated using voice recognition (unknown) (no (unknown) (unknown) Tobacco Status (units (unknown) date) unknown) (unknown) (no (unknown) (unknown) Umbilical hernia (units (unknown) date) unknown) (unknown) (no (unknown) (unknown) 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 [facility]) [facility] (unknown) (no (unknown) (unknown) [History Confirmed (units (unknown) date) 09/17/22] unknown) (unknown) (no (unknown) (unknown) albuterol sulfate 90 (uni ts (unknown) date) mcg/actuation breath unknown) activated powder inhaler 1 inh (unknown) (no (unknown) (unknown) alcohol intake: (units (unknown) date) never unknown) (unknown) (no (unknown) (unknown) atenolol 25 mg (units (unknown) date) tablet 25 mg PO DAILY unknown) 09/17/22 [History Confirmed 09/17/22] (unknown) (no (unknown) (unknown) atorvastatin 40 mg (units (unknown) date) tablet (Lipitor) 40 unknown) mg PO HS ##0 06/14/12 [History Confirmed (unknown) (no (unknown) (unknown) azathioprine 50 mg (units (unknown) date) tablet (Imuran) 50 mg unknown) PO DAILY 09/17/22 [History Confirmed (unknown) (no (unknown) (unknown) budesonide 3 mg (units (unknown) date) capsule,delayed,exten unknown) ded release 3 mg PO DAILY 07/09/22 [History (unknown) (no (unknown) (unknown) bupropion HCl 150 mg (uni ts (unknown) date) tablet,12 hr unknown) sustained-release (Wellbutrin SR) 150 mg PO Q (unknown) (no (unknown) (unknown) dulaglutide 3 mg/0.5 (uni ts (unknown) date) mL subcutaneous pen unknown) injector (Trulicity) 3 mg SUBCUT QWEEK (unknown) (no (unknown) (unknown) duloxetine 30 mg (units (unknown) date) capsule,delayed unknown) release (Cymbalta) 60 mg PO DAILY 07/09/22 (unknown) (no (unknown) (unknown) fluticasone (units (un known) date) propionate 50 unknown) mcg/actuation nasal spray,suspension 1 spray (unknown) (no (unknown) (unknown) gabapentin 300 mg (units (unknown) date) capsule 300 mg PO unknown) BEDTIME 09/17/22 [History Confirmed (unknown) (no (unknown) (unknown) have occurred. If (units (unknown) date) there are any unknown) questions, please contact the Medical Records (unknown) (no (unknown) (unknown) household members: (units (unknown) date) spouse unknown) (unknown) (no (unknown) (unknown) hydrochlorothiazide (unit s (unknown) date) 25 mg tablet 25 mg PO unknown) QDAY ##0 06/14/12 [History Confirmed (unknown) (no (unknown) (unknown) inhalation Q4-6H PRN (uni ts (unknown) date) 09/17/22 [History unknown) Confirmed 09/17/22] (unknown) (no (unknown) (unknown) inhalation Q6-8H PRN (uni ts (unknown) date) 09/17/22 [History unknown) Confirmed 09/17/22] (unknown) (no (unknown) (unknown) insulin glargine 100 (uni ts (unknown) date) unit/mL (3 mL) unknown) subcutaneous pen (Lantus Solostar U-100 (unknown) (no (unknown) (unknown) intranasal DAILY (units (unknown) date) 09/17/22 [History unknown) Confirmed 09/17/22] (unknown) (no (unknown) (unknown) ipratropium 0.5 (units (unknown) date) mg-albuterol 3 mg unknown) (2.5 mg base)/3 mL nebulization soln 3 ml (unknown) (no (unknown) (unknown) lisinopril 5 mg (units (unknown) date) tablet 5 mg PO DAILY unknown) 07/09/22 [History Confirmed 09/17/22] (unknown) (no (unknown) (unknown) lives independently: (uni ts (unknown) date) Yes unknown) (unknown) (no (unknown) (unknown) marital status: (units (unknown) date) unknown) (unknown) (no (unknown) (unknown) may occur. (units (unk nown) date) Occasional wrong-word unknown) or 'sound-alike' substitutions may have (unknown) (no (unknown) (unknown) occurred due to the (unit s (unknown) date) inherent limitations unknown) of voice recognition software. Please (unknown) (no (unknown) (unknown) pantoprazole 20 mg (units (unknown) date) tablet,delayed unknown) release (Protonix) 20 mg PO DAILY 09/17/22 (unknown) (no (unknown) (unknown) puff inhalation (units (unknown) date) DAILY 09/17/22 unknown) [History Confirmed 09/17/22] (unknown) (no (unknown) (unknown) read the note (units ( unknown) date) carefully and unknown) recognize, using context, where these substitutions (unknown) (no (unknown) (unknown) software. Although (units (unknown) date) every effort is made unknown) to edit content, environmental services floor tech errors (unknown) (no (unknown) (unknown) substance use type: (unit s (unknown) date) does not use unknown) (unknown) (no (unknown) (unknown) tamsulosin 0.4 mg (units (unknown) date) capsule 0.4 mg PO unknown) BEDTIME 07/09/22 [History Confirmed (unknown) (no (unknown) (unknown) tiotropium bromide (units (unknown) date) 2.5 mcg/actuation unknown) mist for inhalation (Spiriva Respimat) 2 Result panel 3 (unknown) (no (unknown) (unknown) (no value) (units (unk nown) date) unknown) (unknown) (no (unknown) (unknown) (1) Umbilical (units ( unknown) date) hernia: unknown) (unknown) (no (unknown) (unknown) [id number] (units (unkn own) date) unknown) (unknown) (no (unknown) (unknown) 09/17/22 1243 (units ( unknown) date) unknown) (unknown) (no (unknown) (unknown) 09/17/22 [History (units (unknown) date) Confirmed 09/17/22] unknown) (unknown) (no (unknown) (unknown) 09/17/22 (units (unkno wn) date) unknown) (unknown) (no (unknown) (unknown) 09/17/22] (units (unkn own) date) unknown) (unknown) (no (unknown) (unknown) 57 year old man with (uni ts (unknown) date) a reducible umbilical unknown) hernia. Discussed the risks and (unknown) (no (unknown) (unknown) ASPIRIN (#ASPIR 81) (unit s (unknown) date) 81 mg PO Q DAY ##0 unknown) 06/15/12 [History Confirmed 09/17/22] (unknown) (no (unknown) (unknown) Age/Sex: 57 / M Date (uni ts (unknown) date) of Service: unknown) (unknown) (no (unknown) (unknown) Allergies (units (unkn own) date) unknown) (unknown) (no (unknown) (unknown) [place] [address] (unit s (unknown) date) unknown) (unknown) (no (unknown) (unknown) Assessment + Plan (units (unknown) date) unknown) (unknown) (no (unknown) (unknown) Attending Dr: Kip Mccracken (uni ts (unknown) date) Greg JOHANSEN unknown) (unknown) (no (unknown) (unknown) Autoimmune hepatitis (uni ts (unknown) date) unknown) (unknown) (no (unknown) (unknown) COPD (chronic (units ( unknown) date) obstructive pulmonary unknown) disease) (unknown) (no (unknown) (unknown) Central adiposity (units (unknown) date) unknown) (unknown) (no (unknown) (unknown) Chief Complaint (units (unknown) date) unknown) (unknown) (no (unknown) (unknown) Chief Complaint: (units (unknown) date) Umbilical hernia unknown) (unknown) (no (unknown) (unknown) Chronic liver (units ( unknown) date) disease and cirrhosis unknown) (unknown) (no (unknown) (unknown) Confirmed 09/17/22] (unit s (unknown) date) unknown) (unknown) (no (unknown) (unknown) Counseling and (units (unknown) date) educating the unknown) patient/family/caregi thomas: 11 (unknown) (no (unknown) (unknown) DAY ##0 06/15/12 (units (unknown) date) [History Confirmed unknown) 09/17/22] (unknown) (no (unknown) (unknown) : 1965 (units (unknown) date) Acct:[id number] unknown) (unknown) (no (unknown) (unknown) Dept at (units (unkno wn) date) . unknown) (unknown) (no (unknown) (unknown) Details: (units (unkno wn) date) unknown) (unknown) (no (unknown) (unknown) Diabetes mellitus (units (unknown) date) unknown) (unknown) (no (unknown) (unknown) Diabetes (units (unkno wn) date) unknown) (unknown) (no (unknown) (unknown) Documented By: (units (unknown) date) Kip Garza MD unknown) 09/17/22 1057 (unknown) (no (unknown) (unknown) Documenting clinical (uni ts (unknown) date) information in unknown) EHR/Medical record: 8 (unknown) (no (unknown) (unknown) Exam Narrative (units (unknown) date) unknown) (unknown) (no (unknown) (unknown) Exam Narrative: (units (unknown) date) unknown) (unknown) (no (unknown) (unknown) Exam (units (unkno wn) date) unknown) (unknown) (no (unknown) (unknown) Family History (units (unknown) date) (Reviewed 09/17/22 @ unknown) 11:32 by Barby Ojeda MA) (unknown) (no (unknown) (unknown) Father Hypertension (unit s (unknown) date) unknown) (unknown) (no (unknown) (unknown) HPI (units (unkno wn) date) unknown) (unknown) (no (unknown) (unknown) He will return in (units (unknown) date) about 3 months and we unknown) will re-assess. (unknown) (no (unknown) (unknown) Heart disease (units ( unknown) date) unknown) (unknown) (no (unknown) (unknown) History of lung (units (unknown) date) surgery unknown) (unknown) (no (unknown) (unknown) Hyperlipemia (units (u nknown) date) unknown) (unknown) (no (unknown) (unknown) Hypertension (units (u nknown) date) unknown) (unknown) (no (unknown) (unknown) Insulin) 45 unit (units (unknown) date) SUBCUT BID 07/09/22 unknown) [History Confirmed 09/17/22] (unknown) (no (unknown) (unknown) Intake (units (unkno wn) date) unknown) (unknown) (no (unknown) (unknown) Is patient in pain?: (uni ts (unknown) date) No unknown) (unknown) (no (unknown) (unknown) [facility] (units (unknown) date) unknown) (unknown) (no (unknown) (unknown) Loc: [facility] (units (unkno wn) date) unknown) (unknown) (no (unknown) (unknown) Medical History (units (unknown) date) (Updated 09/17/22 @ unknown) 12:41 by Kip Garza MD) (unknown) (no (unknown) (unknown) Medications (units (un known) date) unknown) (unknown) (no (unknown) (unknown) Metformin (units (unkn own) date) Hydrochloride unknown) (GLUCOPHAGE) 2,000 mg PO BIDCC ##0 06/14/12 [History (unknown) (no (unknown) (unknown) Multivitamin, (units ( unknown) date) Minerals, and unknown) (#CENTRUM SILVER) 1 tab PO Q DAY ##0 06/15/12 (unknown) (no (unknown) (unknown) Neuropathy (units (unk nown) date) unknown) (unknown) (no (unknown) (unknown) No Known Drug (units ( unknown) date) Allergies Allergy unknown) (Verified 09/17/22 11:13) (unknown) (no (unknown) (unknown) Obstruction and (units (unknown) date) gangrene presence: unknown) without obstruction or gangrene (unknown) (no (unknown) (unknown) PFSH (units (unkno wn) date) unknown) (unknown) (no (unknown) (unknown) Pain Scale (units (unk nown) date) unknown) (unknown) (no (unknown) (unknown) Patient: (units (unkno wn) date) Rohit Glass unknown) MR#: M (unknown) (no (unknown) (unknown) Performing a (units (u nknown) date) medically appropriate unknown) exam and/or evaluation: 8 (unknown) (no (unknown) (unknown) Plan (units (unkno wn) date) unknown) (unknown) (no (unknown) (unknown) Preparing to see the (uni ts (unknown) date) patient, i.e., chart unknown) review, review of tests: 9 (unknown) (no (unknown) (unknown) Qualified Code(s): (units (unknown) date) K42.9 - Umbilical unknown) hernia without obstruction or gangrene (unknown) (no (unknown) (unknown) Qualifiers: (units (un known) date) unknown) (unknown) (no (unknown) (unknown) Reason For Visit (units (unknown) date) unknown) (unknown) (no (unknown) (unknown) Reducible umbilical (unit s (unknown) date) hernia. The fascial unknown) defect appears to be about 3 cm (unknown) (no (unknown) (unknown) Rohit is a 57 year (uni ts (unknown) date) old man with COPD, unknown) obesity and DM who presents with an (unknown) (no (unknown) (unknown) Signed By: (units (unk nown) date) <Electronically unknown) signed by Kip Garza MD> (unknown) (no (unknown) (unknown) Signed (units (unkno wn) date) unknown) (unknown) (no (unknown) (unknown) Sleep apnea (units (un known) date) unknown) (unknown) (no (unknown) (unknown) Smoking Status: (units (unknown) date) Former smoker unknown) (unknown) (no (unknown) (unknown) Social History (units (unknown) date) (Reviewed 09/17/22 @ unknown) 11:32 by Barby Ojeda MA) (unknown) (no (unknown) (unknown) Status: Acute (units ( unknown) date) unknown) (unknown) (no (unknown) (unknown) Surgery Office Visit (uni ts (unknown) date) unknown) (unknown) (no (unknown) (unknown) Surgical History (units (unknown) date) (Reviewed 09/17/22 @ unknown) 11:32 by Barby Ojeda MA) (unknown) (no (unknown) (unknown) This note may have (units (unknown) date) been all or partially unknown) generated using voice recognition (unknown) (no (unknown) (unknown) Time Coding Minutes (unit s (unknown) date) Spent: (must be on unknown) same date of service/appointment) (unknown) (no (unknown) (unknown) Time Spent (units (unk nown) date) unknown) (unknown) (no (unknown) (unknown) Tobacco Status (units (unknown) date) unknown) (unknown) (no (unknown) (unknown) Total Time: 36 (units (unknown) date) unknown) (unknown) (no (unknown) (unknown) Umbilical hernia (units (unknown) date) unknown) (unknown) (no (unknown) (unknown) 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 [facility]) [facility] ([facility]) (no (unknown) (unknown) [History Confirmed (units (unknown) date) 09/17/22] unknown) (unknown) (no (unknown) (unknown) albuterol sulfate 90 (uni ts (unknown) date) mcg/actuation breath unknown) activated powder inhaler 1 inh (unknown) (no (unknown) (unknown) alcohol intake: (units (unknown) date) never unknown) (unknown) (no (unknown) (unknown) atenolol 25 mg (units (unknown) date) tablet 25 mg PO DAILY unknown) 09/17/22 [History Confirmed 09/17/22] (unknown) (no (unknown) (unknown) atorvastatin 40 mg (units (unknown) date) tablet (Lipitor) 40 unknown) mg PO HS ##0 06/14/12 [History Confirmed (unknown) (no (unknown) (unknown) azathioprine 50 mg (units (unknown) date) tablet (Imuran) 50 mg unknown) PO DAILY 09/17/22 [History Confirmed (unknown) (no (unknown) (unknown) benefits of (units (un known) date) umbilical hernia unknown) repair with mesh. To minimize the risk of (unknown) (no (unknown) (unknown) budesonide 3 mg (units (unknown) date) capsule,delayed,exten unknown) ded release 3 mg PO DAILY 07/09/22 [History (unknown) (no (unknown) (unknown) bupropion HCl 150 mg (uni ts (unknown) date) tablet,12 hr unknown) sustained-release (Wellbutrin SR) 150 mg PO Q (unknown) (no (unknown) (unknown) down but it pops (units (unknown) date) right back out. unknown) (unknown) (no (unknown) (unknown) dulaglutide 3 mg/0.5 (uni ts (unknown) date) mL subcutaneous pen unknown) injector (Trulicity) 3 mg SUBCUT QWEEK (unknown) (no (unknown) (unknown) duloxetine 30 mg (units (unknown) date) capsule,delayed unknown) release (Cymbalta) 60 mg PO DAILY 07/09/22 (unknown) (no (unknown) (unknown) fluticasone (units (un known) date) propionate 50 unknown) mcg/actuation nasal spray,suspension 1 spray (unknown) (no (unknown) (unknown) gabapentin 300 mg (units (unknown) date) capsule 300 mg PO unknown) BEDTIME 09/17/22 [History Confirmed (unknown) (no (unknown) (unknown) gotten larger. It is (uni ts (unknown) date) quite bothersome. He unknown) is able to reduce it when he lays (unknown) (no (unknown) (unknown) have occurred. If (units (unknown) date) there are any unknown) questions, please contact the Medical Records (unknown) (no (unknown) (unknown) household members: (units (unknown) date) spouse unknown) (unknown) (no (unknown) (unknown) hydrochlorothiazide (unit s (unknown) date) 25 mg tablet 25 mg PO unknown) QDAY ##0 06/14/12 [History Confirmed (unknown) (no (unknown) (unknown) inhalation Q4-6H PRN (uni ts (unknown) date) 09/17/22 [History unknown) Confirmed 09/17/22] (unknown) (no (unknown) (unknown) inhalation Q6-8H PRN (uni ts (unknown) date) 09/17/22 [History unknown) Confirmed 09/17/22] (unknown) (no (unknown) (unknown) insulin glargine 100 (uni ts (unknown) date) unit/mL (3 mL) unknown) subcutaneous pen (Lantus Solostar U-100 (unknown) (no (unknown) (unknown) intranasal DAILY (units (unknown) date) 09/17/22 [History unknown) Confirmed 09/17/22] (unknown) (no (unknown) (unknown) ipratropium 0.5 (units (unknown) date) mg-albuterol 3 mg unknown) (2.5 mg base)/3 mL nebulization soln 3 ml (unknown) (no (unknown) (unknown) lisinopril 5 mg (units (unknown) date) tablet 5 mg PO DAILY unknown) 07/09/22 [History Confirmed 09/17/22] (unknown) (no (unknown) (unknown) lives independently: (uni ts (unknown) date) Yes unknown) (unknown) (no (unknown) (unknown) marital status: (units (unknown) date) unknown) (unknown) (no (unknown) (unknown) may occur. (units (unk nown) date) Occasional wrong-word unknown) or 'sound-alike' substitutions may have (unknown) (no (unknown) (unknown) occurred due to the (unit s (unknown) date) inherent limitations unknown) of voice recognition software. Please (unknown) (no (unknown) (unknown) pantoprazole 20 mg (units (unknown) date) tablet,delayed unknown) release (Protonix) 20 mg PO DAILY 09/17/22 (unknown) (no (unknown) (unknown) prior to and (units (u nknown) date) following repair. We unknown) discussed ways to reduce weight through diet. (unknown) (no (unknown) (unknown) puff inhalation (units (unknown) date) DAILY 09/17/22 unknown) [History Confirmed 09/17/22] (unknown) (no (unknown) (unknown) read the note (units ( unknown) date) carefully and unknown) recognize, using context, where these substitutions (unknown) (no (unknown) (unknown) recurrence and mesh (unit s (unknown) date) complications I unknown) recommended he attempt to loose some weight (unknown) (no (unknown) (unknown) software. 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 He (uni ts (unknown) date) has had the hernia unknown) for many years and it has gradually Social History date description facility 2022-09-17 00[facility] No information.
[2022-11-11 14:50] VITALS: BP 124/79
[2022-11-11] MEDS ORDERED: SODIUM CHLORIDE 0.9% 1,000 ML IV STA (14:52)
[2022-11-11] MEDS ORDERED: MORPHINE 2 MG/ML CARPUJECT IVP STA (14:52)
[2022-11-11] MEDS ORDERED: ONDANSETRON 4 MG/2 ML VIAL IVP STA (14:52)
--- NOTE | 2022-11-11 15:21 | ED Physician Documentation ---
PD HPI CHEST PAIN - Stated complaint Stated Complaint: CHEST PAIN MOVING UP LEFT SHOULDER - Chief complaint Chief Complaint: Cardiac - History obtained from History obtained from: Patient - Additional information Additional information: Patient is a 57-year-old female presenting for evaluation of midsternal chest pain that radiates to his left shoulder that has been present since yesterday morning and more constant today. He reports increased pain when he takes a deep breath. He does have a history of spontaneous pneumothoraces in the past related to COPD and emphysema. He denies recent illness with fever, cough or congestion. He denies abdominal pain, vomiting or diarrhea. Review of Systems Constitutional: denies: Fever Cardiac: reports: Chest pain / pressure Respiratory: reports: Dyspnea GI: denies: Abdominal Pain : denies: Dysuria Musculoskeletal: denies: Back pain PD PAST MEDICAL HISTORY - Past Medical History Past Medical History: Yes Cardiovascular: Hypertension, High cholesterol, Coronary artery disease Respiratory: COPD, Emphysema, Sleep apnea, CPAP use, Other Neuro: Migraines, Peripheral neuropathy Endocrine/Autoimmune: Type 2 diabetes GI: GERD : None HEENT: Chronic vision loss Psych: Depression Musculoskeletal: Osteoarthritis, Gout Derm: Eczema, Psoriasis - Past Surgical History Past Surgical History: No - Present Medications Home Medications: Ambulatory Orders Medication Instructions Recorded Confirmed Albuterol [Ventolin Hfa] 2 puffs INH PRN PRN 12/28/13 11/11/22 Atorvastatin Calcium [Lipitor] 40 mg PO QPM 12/28/13 11/11/22 atenoloL [Tenormin] 25 mg PO DAILY 12/28/13 11/11/22 hydroCHLOROthiazide [Hydrodiuril] 12.5 mg PO DAILY 12/28/13 11/11/22 Aspirin [Aspir 81] 81 mg PO DAILY 07/04/15 11/11/22 Sitagliptin Phos/Metformin HCl 1 tab PO BID 05/07/16 11/11/22 [Janumet 50-1,000 mg Tablet] Fluticasone/Salmeterol [Advair 50 - 250 mcg INH BID 05/08/16 03/12/19 250-50 Diskus] Multivitamin [Multivitamins] 1 tab PO DAILY 05/08/16 11/11/22 Nystatin/Triamcin 1 applic TOP . NEEDED PRN 05/08/16 11/11/22 [Nystatin-Triamcinolone Ointm] lisinopriL [Lisinopril] 5 mg PO DAILY 05/08/16 11/11/22 Naproxen 500 mg PO BID PRN #30 tablet. 05/16/16 11/11/22 Dulaglutide [Trulicity] 1.5 mg SQ OAW 03/12/19 11/11/22 Insulin Glargine [Lantus Solostar] 60 unit SQ BID 03/12/19 11/11/22 Ipratropium/Albuterol Sulfate 3 ml IH PRN PRN 03/12/19 11/11/22 [Iprat-Albut 0.5-3(2.5) mg/3 ml] Pantoprazole Sodium [Protonix] 20 mg PO DAILY 03/12/19 11/11/22 Tiotropium [place] [Spiriva 2.5 mcg PO DAILY 03/12/19 11/11/22 Respimat] traMADol [Ultram] 50 mg PO Q4-6H PRN #10 tablet 02/13/20 Budesonide [Entocort EC] 9 mg PO DAILY 11/11/22 11/11/22 Duloxetine HCl [Cymbalta] 60 mg ORAL DAILY 11/11/22 11/11/22 Gabapentin [Gralise] 300 mg PO HS 11/11/22 11/11/22 HYDROcod/ACETAM 5/325 [[place]lamath 5/325] 1 tablet PO Q6H PRN #10 tablet 11/11/22 Tamsulosin [Flomax] 0.4 mg PO DAILY 11/11/22 11/11/22 azaTHIOprine [Azathioprine] 50 mg ORAL DAILY 11/11/22 11/11/22 - Allergies Allergies/Adverse Reactions: Allergies Allergy/AdvReac Type Severity Reaction Status Date / Time No Known Drug Allergies Allergy Verified 11/11/22 13:04 - Social History Does the pt smoke?: No Smoking Status: Never smoker Does the pt drink ETOH?: Yes Does the pt have substance abuse?: No - Immunizations Immunizations are current?: Yes - POLST Patient has POLST: No PD ED PE NORMAL - General General: Alert and oriented X 3, No acute distress, Well developed/nourished - HEENT HEENT: Atraumatic - Neck Neck: Supple, no meningeal sign - Cardiac Cardiac: RRR, No murmur - Respiratory Respiratory: No respiratory distress, Clear bilaterally - Abdomen Abdomen: Soft, Non tender - Derm Derm: Warm and dry - Extremities Extremities: No calf tenderness / cord - Neuro Neuro: Alert and oriented X 3, No motor deficit, Normal speech Results - Vitals Vitals: Vital Signs - 24 hr 11/11/22 11/11/22 12:59 14:49 Temperature 36.1 C L Heart Rate 83 84 Respiratory 18 17 Rate Blood Pressure 136/75 H 124/79 O2 Saturation 96 99 Oxygen O2 Source Room air - EKG (time done) 1310 Rate: Rate (enter#) (81) Rhythm: NSR Ischemia: No: ST elevation c/w ischemia - Labs Labs: Laboratory Tests 11/11/22 11/11/22 11/11/22 13:20 13:20 13:20 WBC 9.0 RBC 4.91 Hgb 15.3 Hct 46.1 MCV 93.9 MCH 31.2 H MCHC 33.2 RDW 13.4 Plt Count 130 MPV 9.8 Neut # (Auto) 7.0 H Lymph # (Auto) 1.2 L Mckinley # (Auto) 0.7 Eos # (Auto) 0.1 Baso # (Auto) 0.0 Absolute Nucleated RBC 0.00 Nucleated RBC % 0.0 D-Dimer Sodium 134 L Potassium 3.5 Chloride 96 L Carbon Dioxide 25 Anion Gap 13.0 BUN 13 Creatinine 0.8 Estimated GFR (MDRD) 99 Glucose 110 H Calcium 9.5 Total Bilirubin 1.3 H AST 33 ALT 40 Alkaline Phosphatase 89 Troponin I High Sens 4.0 Total Protein 7.9 Albumin 4.2 Globulin 3.7 Albumin/Globulin Ratio 1.1 Lipase 46 11/11/22 14:59 WBC RBC Hgb Hct MCV MCH MCHC RDW Plt Count MPV Neut # (Auto) Lymph # (Auto) Mckinley # (Auto) Eos # (Auto) Baso # (Auto) Absolute Nucleated RBC Nucleated RBC % D-Dimer < 200.0 L Sodium Potassium Chloride Carbon Dioxide Anion Gap BUN Creatinine Estimated GFR (MDRD) Glucose Calcium Total Bilirubin AST ALT Alkaline Phosphatase Troponin I High Sens Total Protein Albumin Globulin Albumin/Globulin Ratio Lipase PD Medical Decision Making - ED course Complexity details: reviewed results, re-evaluated patient, d/w patient ED course: Patient presenting for evaluation of chest pain that has been ongoing for 24 hours. His EKG shows a sinus rhythm without acute ischemia. His high- sensitivity troponin is negative.His D-dimer is negative. I did review his chest x-ray which is negative for signs of pneumothorax. Due to persistent pain I did consider dissection and ordered CT angios as a dissection protocol. It is negative for dissection.Other labs are reviewed and without significant findings.He has no abdominal complaints.In the setting of his current EKG and given the duration of his symptoms feel ACS is unlikely. I do not think his symptoms represent unstable angina. On review of prior records he does have a history of similar presentations in the past.He has been on tramadol in the past for similar pains. He is requesting something stronger than tramadol for home. Discussed that we could give a small amount of hydrocodone but that he needs close follow-up with his primary care doctor and may also need further cardiac testing such as a stress test. He is advised on concerning symptoms to return for. Departure - Departure Disposition: Home, Self Care Clinical Impression: Chest pain Condition: Stable Instructions: ED Chest Pain Atypical Unkn Cause [facility] Prescriptions: HYDROcod/ACETAM 5/325 [[place]lamath 5/325] 1 tablet PO Q6H PRN #10 tablet PRN Reason: Pain Comments: The exact cause of your chest pain is unclear at this time. Your markers for heart attack and blood clots in your lungs are negative. There is also no signs of a collapsed lung. Your CT scan does not show any issues with the aorta which is the big blood vessel that runs through your chest.I would recommend close follow-up with your primary care doctor. You may need referral to a merchandise director or need further testing such as a stress test. If you have any new or worsening symptoms please consider return to the emergency department. I have sent a small amount of narcotic pain medication to [facility] in [place]. I am prescribing a short course of narcotic pain medication for you. These are potentially dangerous and addictive medications that should be used carefully. These medications may constipate you. Take an [id number] stool softener (docusate) twice daily with plenty of water while taking these medications. If you go 24 hours without a bowel movement, take [id number] miralax, per package instructions. Do not drink or drive while taking these medications. If you received narcotic or sedating medications while in the emergency department, do not drive for 24 hours. Store this medication in a safe, secure place and out of reach of children. It is a violation of federal law to give or sell this medication to another person or to use in a manner other than prescribed. The ED will not refill narcotic prescriptions, including prescriptions lost or stolen. To dispose of unwanted medications: 1. [facility] at [address] in [place] has a medication drop box. They accept prescription medications (in pill form) Thursday through Thursday 9:00 a.m. to 5:00 p.m. 2. [facility] [employer] accepts prescription medications (in pill form only) for disposal year round. Call for more information. 3. Contact the [facility] for the next [facility] sponsored prescription drug collection event. , [phone], or [phone]; Note that many narcotic pain relievers also contain Tylenol/acetaminophen. Please ensure that your total dose of acetaminophen from all sources does not exceed 3 g (3000 mg) per day. Discharge Date/Time: 11/11/22 18:56
[2022-11-11] MEDS ORDERED: HYDROmorphone 1 MG/ML CARPUJECT IVP STA (16:13)
[2022-11-11] MEDS ORDERED: iohexoL-300 100 ML VIAL ONE (16:23)
--- NOTE | 2022-11-11 17:43 | CT Report ---
PROCEDURE: ANGIO CHEST W/WO INDICATIONS: CP; eval for dissection CONTRAST: 100mL Omni 300 TECHNIQUE: After the administration of intravenous contrast, 2 mm axial images were acquired from the pulmonary apices to the posterior costophrenic angles during the arterial phase. In addition, 1 mm lung kernel and 5 mm soft tissue kernel reconstructions were performed. 3-dimensional coronal oblique maximum int ensity projection (MIP) reformats, 8 mm axial MIP, and 5 mm coronal and sagittal MPR reformats were t hen performed through the thorax. For radiation dose reduction, the following was used: automated exp osure control, adjustment of mA and/or kV according to patient size. COMPARISON: Correlation is made with the accompanying abdomen pelvis CT, 11/11/2022. Correlation is a lso made with prior chest CT, 12/28/2016 FINDINGS: Image quality: Excellent. Aorta: On precontrast imaging, no neural hematomas are seen. On post contrast imaging, the aorta demo nstrates normal caliber, without findings of dissection. No periaortic inflammatory change can be see n. Lungs and pleura: Prominent facet changes are seen, with prominent subpleural bleb formation, particu larly involving the left upper lung. Subpleural scarring change can be seen at both lung bases. Appar ent postoperative change of the left lung apex can be seen, with a faintly visualized staple line. Th is is new compared to 2017. No pleural effusions or pneumothorax. Central and peripheral airways are patent. Mediastinum: Prominent coronary artery calcification is seen. Heart size is normal, without pericardi al effusion. No mediastinal or hilar adenopathy. The pulmonary arteries demonstrate normal size. No large or central pulmonary embolism can be seen on this study that is not optimized for evaluation of the pulmonary arteries. Esophagus is normal in caliber, without hiatal hernia. Bones and chest wall: No suspicious bony lesions. Ribs and thoracic spine appear intact throughout. Age-appropriate degenerative changes are seen. No axillary or supraclavicular adenopathy. The th yroid is normal in size and there are no incidental findings. Abdomen: Visualized upper abdominal solid organs appear normal in the early arterial phase of enhanc ement. IMPRESSION: Negative for acute aortic pathology. Additional findings: Postoperative change of the left lung apex. Prominent emphysematous changes Prominent coronary artery calcification Reviewed by: Jose Juan Orozco MD on 11/11/2022 4:42 PM ALONSO Approved by: Jose Juan Orozco MD on 11/11/2022 4:42 PM [place] Station ID: [id number]
--- NOTE | 2022-11-11 17:47 | CT Report ---
PROCEDURE: ANGIO ABDOMEN/PELVIS W INDICATIONS: dissection protocol CONTRAST: 100mL Omni 300 TECHNIQUE: After the administration of intravenous contrast, 2.5 mm thick sections acquired from the diaphragm t o the symphysis. 10 mm maximum-intensity projection (MIP) reformats were then acquired. For radiati on dose reduction, the following was used: automated exposure control, adjustment of mA and/or kV ac cording to patient size. COMPARISON: Correlation is made with the accompanying chest CT, 11/11/2022. FINDINGS: Image quality: Excellent. Aorta: The aorta demonstrates normal caliber, without findings of stenosis or aneurysm. Atherosclero tic calcification is seen. Mesenteric arteries: Celiac trunk, superior and inferior mesenteric arteries appear patent. Right pelvic arteries: Generalized atherosclerotic change, without significant focal abnormality. Left pelvic arteries: Generalized atherosclerotic change can be seen. No evidence of a significant s tenosis is identified. Extravascular soft tissues: No similar changes and scarring changes can be seen at the lung bases. He art size is normal. The liver is prominent, without focal lesion. The spleen is enlarged, measuring g reater than 16 cm AP. Accessory splenule is can be seen along the splenic hilum. Gallbladder wall hawley s not appear thickened. Biliary system is non dilated. Pancreas enhances normally. No adrenal nod ules. Kidneys are normal in size and enhancement, without hydronephrosis. Non opacified bowel loops are normal in wall thickness and caliber. No free fluid or air. A normal appendix is incidentally noted. There is a moderate fat-containing periumbilical hernia seen, as on series 2 image 106. No retroperitoneal or mesenteric adenopathy. There is a fat-containing right inguinal hernia. No susp icious bony lesions. There is a Mild levoconvex scoliotic curvature is seen. Generalized degenerativ e changes are seen, which are worst involving the lower lumbar spine. IMPRESSION: Normal abdominal aorta. Additional findings: Remote compression deformity of T12 Enlarged liver Splenomegaly Accessory splenules Moderate fat-containing periumbilical hernia Normal appendix Fat-containing right inguinal hernia Reviewed by: Jose Juan Orozco MD on 11/11/2022 4:46 PM AKST Approved by: Jose Juan Orozco MD on 11/11/2022 4:46 PM AKST Station ID: [id number]
[2022-11-11] MEDS ORDERED: iohexoL-300 100 ML VIAL IVP ONE (19:19)
== END 2022-11-11 18:56 | disposition home or self-care (01) ==
LOC: ED 12:46
DX: R07.1 Chest pain on breathing (principal); I10 Essential (primary) hypertension; J43.9 Emphysema, unspecified; E11.42 Type 2 diabetes mellitus with diabetic polyneuropathy; Z79.4 Long term (current) use of insulin
CPT/HCPCS: 36415; 71045; 71275; 74174; 80053; 83690; 84484; 85025; 85379; 93005; 96361; 96374; 96375; 99284; J1170; Q9967

== ENCOUNTER 2023-02-16 17:12 | Emergency (ER) | payer OTHER ==
[2023-02-16] MEDS ORDERED: HYDROmorphone 1 MG/ML CARPUJECT IVP STA ×2 (17:25→18:22)
--- NOTE | 2023-02-16 17:26 | ED Physician Documentation ---
PD HPI CHEST PAIN - Stated complaint Stated Complaint: CHEST PX - Chief complaint Chief Complaint: Cardiac - History obtained from History obtained from: Patient - Additional information Additional information: 57-year-old gentleman with history of COPD, recurrent spontaneous pneumothoraces status post left-sided pleurodesis and lobectomy, but no history of heart disease presents with chest pain. It started yesterday morning when he woke up. It was substernal, it has been persistent since then but worse today with radiation across the chest. It does not radiate to the back. He states this is similar to an episode of chest pain he had in October. At that time he had a thorough work-up here which was negative and subsequently was diagnosed with "2 displaced ribs" [place] PAST MEDICAL HISTORY - Past Medical History Cardiovascular: Hypertension, High cholesterol, Coronary artery disease Respiratory: COPD, Emphysema, Sleep apnea, CPAP use, Other Neuro: Migraines, Peripheral neuropathy Endocrine/Autoimmune: Type 2 diabetes GI: GERD : None HEENT: Chronic vision loss Psych: Depression Musculoskeletal: Osteoarthritis, Gout Derm: Eczema, Psoriasis - Past Surgical History Past Surgical History: No - Present Medications Home Medications: Ambulatory Orders Medication Instructions Recorded Confirmed Albuterol [Ventolin Hfa] 2 puffs INH PRN PRN 12/28/13 11/11/22 Atorvastatin Calcium [Lipitor] 40 mg PO QPM 12/28/13 11/11/22 atenoloL [Tenormin] 25 mg PO DAILY 12/28/13 11/11/22 hydroCHLOROthiazide [Hydrodiuril] 12.5 mg PO DAILY 12/28/13 11/11/22 Aspirin [Aspir 81] 81 mg PO DAILY 07/04/15 11/11/22 Sitagliptin Phos/Metformin HCl 1 tab PO BID 05/07/16 11/11/22 [Janumet 50-1,000 mg Tablet] Fluticasone/Salmeterol [Advair 50 - 250 mcg INH BID 05/08/16 03/12/19 250-50 Diskus] Multivitamin [Multivitamins] 1 tab PO DAILY 05/08/16 11/11/22 Nystatin/Triamcin 1 applic TOP . NEEDED PRN 05/08/16 11/11/22 [Nystatin-Triamcinolone Ointm] lisinopriL [Lisinopril] 5 mg PO DAILY 05/08/16 11/11/22 Naproxen 500 mg PO BID PRN #30 tablet. 05/16/16 11/11/22 Dulaglutide [Trulicity] 1.5 mg SQ OAW 03/12/19 11/11/22 Insulin Glargine [Lantus Solostar] 60 unit SQ BID 03/12/19 11/11/22 Ipratropium/Albuterol Sulfate 3 ml IH PRN PRN 03/12/19 11/11/22 [Iprat-Albut 0.5-3(2.5) mg/3 ml] Pantoprazole Sodium [Protonix] 20 mg PO DAILY 03/12/19 11/11/22 Tiotropium [place] [Spiriva 2.5 mcg PO DAILY 03/12/19 11/11/22 Respimat] traMADol [Ultram] 50 mg PO Q4-6H PRN #10 tablet 02/13/20 Budesonide [Entocort EC] 9 mg PO DAILY 11/11/22 11/11/22 Duloxetine HCl [Cymbalta] 60 mg ORAL DAILY 11/11/22 11/11/22 Gabapentin [Gralise] 300 mg PO HS 11/11/22 11/11/22 HYDROcod/ACETAM 5/325 [[place] 5/325] 1 tablet PO Q6H PRN #10 tablet 11/11/22 Tamsulosin [Flomax] 0.4 mg PO DAILY 11/11/22 11/11/22 azaTHIOprine [Azathioprine] 50 mg ORAL DAILY 11/11/22 11/11/22 Doxycycline [Vibramycin] 100 mg PO BID #14 tablet 02/16/23 HYDROcod/ACETAM 5/325 [[place] 5/325] 1 - 2 tab PO Q6H PRN #10 tablet 02/16/23 - Allergies Allergies/Adverse Reactions: Allergies Allergy/AdvReac Type Severity Reaction Status Date / Time No Known Drug Allergies Allergy Verified 02/16/23 17:15 - Social History Does the pt smoke?: No Smoking Status: Never smoker Does the pt drink ETOH?: Yes Does the pt have substance abuse?: No - Immunizations Immunizations are current?: Yes - POLST Patient has POLST: No PD ED PE NORMAL - Vitals Vital signs reviewed: Yes - General General: Alert and oriented X 3, No acute distress - Neck Neck: Supple, no meningeal sign, No bony TTP - Cardiac Cardiac: RRR, No murmur - Respiratory Respiratory: No respiratory distress, Clear bilaterally - Abdomen Abdomen: Non tender - Extremities Extremities: No edema, No calf tenderness / cord - Neuro Neuro: Alert and oriented X 3, Normal speech Results - Vitals Vitals: Vital Signs - 24 hr 02/16/23 02/16/23 17:15 17:52 Temperature 36.5 C Heart Rate 80 80 Respiratory 16 20 Rate Blood Pressure 149/73 H 126/81 H O2 Saturation 96 95 Oxygen O2 Source Room air - EKG (time done) 1724 EKG releavant findings:: EKG personally interpreted by author of this note. Relevant findings are: Rate: Rate (enter#) (79) Rhythm: NSR [place]: Normal Intervals: Normal AR QRS: Normal Ischemia: Normal ST segments - Labs Labs: Laboratory Tests 02/16/23 02/16/23 02/16/23 17:31 17:31 17:31 WBC 9.7 RBC 4.64 L Hgb 14.7 Hct 43.6 MCV 94.0 MCH 31.7 H MCHC 33.7 RDW 14.3 Plt Count 148 MPV 9.4 Neut # (Auto) 7.9 H Lymph # (Auto) 1.0 L [place] # (Auto) 0.8 Eos # (Auto) 0.0 Baso # (Auto) 0.0 Absolute Nucleated RBC 0.00 Nucleated RBC % 0.0 Sodium 135 Potassium 3.3 L Chloride 95 L Carbon Dioxide 26 Anion Gap 14.0 H BUN 12 Creatinine 0.7 Estimated GFR (MDRD) 115 Glucose 81 Calcium 9.0 Total Bilirubin 1.1 H AST 40 ALT 36 Alkaline Phosphatase 72 Troponin I High Sens 4.2 Total Protein 7.0 Albumin 3.9 Globulin 3.1 Albumin/Globulin Ratio 1.3 Lipase 45 PD Medical Decision Making - ED course ED course: 57-year-old gentleman presents with severe chest pain greater than 24 hours duration with negative biomarkers and normal CBC. His CMP was unremarkable as well. Chest x-ray read as "mild atypical pneumonia." He has been coughing so seems reasonable to treat with something like doxycycline pending follow-up. He had a similar episode in October which resulted in a negative aortic work-up. The pain does not radiate to the back and I do not think that work-up needs to be repeated. Departure - Departure Disposition: 01 Home, Self Care Clinical Impression: Chest pain, Atypical pneumonia Condition: Stable Record reviewed to determine appropriate education?: Yes Instructions: ED Chest Pain NonCardiac Prescriptions: HYDROcod/ACETAM 5/325 [[place] 5/325] 1 - 2 tab PO Q6H PRN #10 tablet PRN Reason: Pain Doxycycline [Vibramycin] 100 mg PO BID #14 tablet Comments: I sent your prescriptions electronically to [facility] in [place]. The only significant abnormal finding today was the potential for an atypical pneumonia on your x-ray for which I am prescribing antibiotics. Follow-up with your primary care physician in the next few days for recheck. Return for new or worsening symptoms. I am prescribing a short course of narcotic pain medication for you. These are potentially dangerous and addictive medications that should be used carefully. These medications may constipate you. Take an rgii-erz-gvdgsky stool softener (docusate) twice daily with plenty of water while taking these medications. If you go 24 hours without a bowel movement, take [id number] miralax, per package instructions. Do not drink or drive while taking these medications. If you received narcotic or sedating medications while in the emergency department, do not drive for 24 hours. Store this medication in a safe, secure place and out of reach of children. It is a violation of federal law to give or sell this medication to another person or to use in a manner other than prescribed. The ED will not refill narcotic prescriptions, including prescriptions lost or stolen. To dispose of unwanted medications: 1. [facility] at [address] in [place] has a medication drop box. They accept prescription medications (in pill form) Thursday through Thursday 9:00 a.m. to 5:00 p.m. 2. The [facility] [employer] accepts prescription medications (in pill form only) for disposal year round. Call for more information. 3. Contact the [facility] for the next [facility] sponsored prescription drug collection event. , [phone], or [phone]; Note that many narcotic pain relievers also contain Tylenol/acetaminophen. Please ensure that your total dose of acetaminophen from all sources does not exceed 3 g (3000 mg) per day.
[2023-02-16 17:46] LABS: BASOPHILS % (AUTO) 0.1 %; EOSINOPHILS % (AUTO) 0.2 %; HCT - HEMATOCRIT 43.6 % (42.0-52.0); HGB - HEMOGLOBIN 14.7 g/dL (14.0-18.0); LYMPHOCYTES % (AUTO) 10.2 %; MEAN CORPUSCULAR HEMOGLOBIN 31.7 pg (27.0-31.0); MEAN CORPUSCULAR HGB CONC 33.7 g/dL (32.0-36.0); MEAN PLATELET VOLUME 9.4 fL (7.4-11.4); MONOCYTES # (AUTO) 0.8 10^3/uL (0.0-1.0); MONOCYTES % (AUTO) 8.1 %; NEUTROPHILS # (AUTO) 7.9 10^3/uL (1.5-6.6); NEUTROPHILS % (AUTO) 81.1 %; PLT - PLATELET COUNT 148 10^3/uL (130-450); RED BLOOD COUNT 4.64 10^6/uL (4.70-6.10); RED CELL DISTRIBUTION WIDTH 14.3 % (12.0-15.0); WHITE BLOOD COUNT 9.7 x10^3/uL (4.8-10.8)
--- NOTE | 2023-02-16 17:52 | XRAY Report ---
PROCEDURE: Chest 1 View X-Ray INDICATIONS: Chest pain TECHNIQUE: One view of the chest was acquired. COMPARISON: None. FINDINGS: Surgical changes and devices: None. Lungs and pleura: No pleural effusions or pneumothorax. Mild diffuse reticulonodular pulmonary opaci ty. Mediastinum: Mediastinal contours appear normal. Heart size is normal. Bones and chest wall: No suspicious bony lesions. Overlying soft tissues appear unremarkable. IMPRESSION: Mild atypical pneumonia. Reviewed by: Varsha Willson MD on 02/16/2023 5:50 PM PDT Approved by: Varsha Willson MD on 02/16/2023 5:50 PM PDT Station ID: [id number]
[2023-02-16 17:59] LABS: ALBUMIN 3.9 g/dL (3.2-5.5); ALBUMIN/GLOBULIN RATIO 1.3 (1.0-2.2); BILIRUBIN,TOTAL 1.1 mg/dL (0.2-1.0); CREATININE 0.7 mg/dL (0.6-1.2); POTASSIUM 3.3 mmol/L (3.5-5.0)
[2023-02-16] MEDS ORDERED: KETOROLAC 15 MG/ML VIAL IVP STA (18:22)
[2023-02-16] MEDS ORDERED: DOXYCYCLINE 100 MG TABLET PO STA (18:22)
[2023-02-16 18:32] VITALS: BP 131/72
== END 2023-02-16 18:58 | disposition home or self-care (01) ==
LOC: ED 17:12
DX: J18.9 Pneumonia, unspecified organism (principal); R07.9 Chest pain, unspecified; I10 Essential (primary) hypertension; E11.9 Type 2 diabetes mellitus without complications; Z79.85 Long-term (current) use of injectable non-insulin antidiabetic drugs
CPT/HCPCS: 36415; 71045; 80053; 83690; 84484; 85025; 93005; 96374; 96375; 96376; 99284; A9270; J1170

== ENCOUNTER 2023-08-23 16:13 | Emergency (ER) | payer OTHER ==
[2023-08-23 16:43] LABS: BASOPHILS % (AUTO) 0.2 %; EOSINOPHILS % (AUTO) 0.3 %; HCT - HEMATOCRIT 44.2 % (42.0-52.0); HGB - HEMOGLOBIN 14.5 g/dL (14.0-18.0); LYMPHOCYTES % (AUTO) 10.8 %; MEAN CORPUSCULAR HEMOGLOBIN 30.5 pg (27.0-31.0); MEAN CORPUSCULAR HGB CONC 32.8 g/dL (32.0-36.0); MEAN CORPUSCULAR VOLUME 93.1 fL (80.0-94.0); MEAN PLATELET VOLUME 9.3 fL (7.4-11.4); MONOCYTES # (AUTO) 0.8 10^3/uL (0.0-1.0); MONOCYTES % (AUTO) 8.5 %; NEUTROPHILS # (AUTO) 7.6 10^3/uL (1.5-6.6); NEUTROPHILS % (AUTO) 79.8 %; PLT - PLATELET COUNT 171 10^3/uL (130-450); RED BLOOD COUNT 4.75 10^6/uL (4.70-6.10); RED CELL DISTRIBUTION WIDTH 14.5 % (12.0-15.0); WHITE BLOOD COUNT 9.5 x10^3/uL (4.8-10.8)
[2023-08-23 16:51] LABS: INR 1.3 (0.8-1.2); PT - PROTHROMBIN TIME 14.2 secs (9.9-12.6)
[2023-08-23 17:00] LABS: ALBUMIN 3.9 g/dL (3.2-5.5); ALBUMIN/GLOBULIN RATIO 1.3 (1.0-2.2); CALCIUM 9.3 mg/dL (8.5-10.3); CREATININE 0.7 mg/dL (0.6-1.3); POTASSIUM 3.5 mmol/L (3.5-4.5); TOTAL PROTEIN 6.9 g/dL (6.4-8.9)
--- NOTE | 2023-08-23 17:06 | ED Physician Documentation ---
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 It started underneath his armpit but spread over the left side of his chest. Pain is dull, worse with laying down and inspiration. Associated mild shortness of breath. Patient was afraid that he may have developed another pneumothorax and so decided to seek evaluation. Review of Systems Constitutional: denies: Fever, Chills Ears: denies: Loss of hearing, Ear pain, Drainage/discharge Cardiac: reports: Chest pain / pressure. denies: Palpitations Respiratory: reports: Dyspnea. denies: Cough, Wheezing GI: denies: Abdominal Pain, Nausea, Vomiting PD PAST MEDICAL HISTORY - Past Medical History Past Medical History: Yes Cardiovascular: Hypertension, High cholesterol, Coronary artery disease Respiratory: COPD, Emphysema, Sleep apnea, CPAP use, Other Neuro: Migraines, Peripheral neuropathy Endocrine/Autoimmune: Type 2 diabetes GI: GERD : None HEENT: Chronic vision loss Psych: Depression Musculoskeletal: Osteoarthritis, Gout Derm: Eczema, Psoriasis - Past Surgical History Past Surgical History: No - Present Medications Home Medications: Ambulatory Orders Medication Instructions Recorded Confirmed Albuterol [Ventolin Hfa] 2 puffs INH PRN PRN 12/28/13 11/11/22 Atorvastatin Calcium [Lipitor] 40 mg PO QPM 12/28/13 11/11/22 atenoloL [Tenormin] 25 mg PO DAILY 12/28/13 11/11/22 hydroCHLOROthiazide [Hydrodiuril] 12.5 mg PO DAILY 12/28/13 11/11/22 Aspirin [Aspir 81] 81 mg PO DAILY 07/04/15 11/11/22 Sitagliptin Phos/Metformin HCl 1 tab PO BID 05/07/16 11/11/22 [Janumet 50-1,000 mg Tablet] Fluticasone/Salmeterol [Advair 50 - 250 mcg INH BID 05/08/16 03/12/19 250-50 Diskus] Multivitamin [Multivitamins] 1 tab PO DAILY 05/08/16 11/11/22 Nystatin/Triamcin 1 applic TOP . NEEDED PRN 05/08/16 11/11/22 [Nystatin-Triamcinolone Ointm] lisinopriL [Lisinopril] 5 mg PO DAILY 05/08/16 11/11/22 Naproxen 500 mg PO BID PRN #30 tablet. 05/16/16 11/11/22 Dulaglutide [Trulicity] 1.5 mg SQ OAW 03/12/19 11/11/22 Insulin Glargine [Lantus Solostar] 60 unit SQ BID 03/12/19 11/11/22 Ipratropium/Albuterol Sulfate 3 ml IH PRN PRN 03/12/19 11/11/22 [Iprat-Albut 0.5-3(2.5) mg/3 ml] Pantoprazole Sodium [Protonix] 20 mg PO DAILY 03/12/19 11/11/22 Tiotropium [place] [Spiriva 2.5 mcg PO DAILY 03/12/19 11/11/22 Respimat] traMADol [Ultram] 50 mg PO Q4-6H PRN #10 tablet 02/13/20 Budesonide [Entocort EC] 9 mg PO DAILY 11/11/22 11/11/22 Duloxetine HCl [Cymbalta] 60 mg ORAL DAILY 11/11/22 11/11/22 Gabapentin [Gralise] 300 mg PO HS 11/11/22 11/11/22 HYDROcod/ACETAM 5/325 [[place] 5/325] 1 tablet PO Q6H PRN #10 tablet 11/11/22 Tamsulosin [Flomax] 0.4 mg PO DAILY 11/11/22 11/11/22 azaTHIOprine [Azathioprine] 50 mg ORAL DAILY 11/11/22 11/11/22 Doxycycline [Vibramycin] 100 mg PO BID #14 tablet 02/16/23 HYDROcod/ACETAM 5/325 [[place] 5/325] 1 - 2 tab PO Q6H PRN #10 tablet 02/16/23 Oxycodone HCl/Acetaminophen 1 - 2 each PO Q6H PRN #14 tablet 08/23/23 [Percocet 5-325 mg Tablet] - Allergies Allergies/Adverse Reactions: Allergies Allergy/AdvReac Type Severity Reaction Status Date / Time No Known Drug Allergies Allergy Verified 08/23/23 16:22 - Social History Does the pt smoke?: No Smoking Status: Never smoker Does the pt drink ETOH?: Yes Does the pt have substance abuse?: No - Immunizations Immunizations are current?: Yes - POLST Patient has POLST: No PD ED PE NORMAL - Vitals Vital signs reviewed: Yes - General General: Alert and oriented X 3, No acute distress, Other ( appears chronically unwell, older than stated age) - Neck Neck: Supple, no meningeal sign - Cardiac Cardiac: RRR, Strong equal pulses - Respiratory Respiratory: No respiratory distress, Other (decreased breath sounds R lung) - Abdomen Abdomen: Soft, Non tender, Other (soft, reducible hernia umbilical region) - Derm Derm: Normal color, Warm and dry, No rash - Extremities Extremities: No deformity, No tenderness to palpate, Normal ROM s pain - Neuro Neuro: Alert and oriented X 3, reproduction artist 2-12 intact, No motor deficit, Normal speech - Psych Psych: Normal mood, Normal affect Results - Vitals Vitals: Vital Signs - 24 hr 08/23/23 08/23/23 08/23/23 16:17 17:20 18:18 Temperature 36 C L Heart Rate 90 90 89 Respiratory 17 16 18 Rate Blood Pressure 133/75 H 125/85 H 135/75 H O2 Saturation 98 99 94 08/23/23 18:37 Temperature Heart Rate 89 Respiratory 22 Rate Blood Pressure 136/29 H O2 Saturation 95 Oxygen O2 Source Room air - Labs Labs: Laboratory Tests 08/23/23 08/23/23 08/23/23 16:38 16:38 16:38 WBC 9.5 RBC 4.75 Hgb 14.5 Hct 44.2 MCV 93.1 MCH 30.5 MCHC 32.8 RDW 14.5 Plt Count 171 MPV 9.3 Neut # (Auto) 7.6 H Lymph # (Auto) 1.0 L [place] # (Auto) 0.8 Eos # (Auto) 0.0 Baso # (Auto) 0.0 Absolute Nucleated RBC 0.00 Nucleated RBC % 0.0 PT 14.2 H INR 1.3 H Sodium 136 Potassium 3.5 Chloride 101 Carbon Dioxide 26 Anion Gap 9.0 BUN 15 Creatinine 0.7 Estimated GFR (MDRD) 115 Glucose 213 H Calcium 9.3 Total Bilirubin 1.0 AST 24 ALT 36 Alkaline Phosphatase 104 Troponin I High Sens B-Natriuretic Peptide 34 Total Protein 6.9 Albumin 3.9 Globulin 3.0 Albumin/Globulin Ratio 1.3 08/23/23 16:38 WBC RBC Hgb Hct MCV MCH MCHC RDW Plt Count MPV Neut # (Auto) Lymph # (Auto) [place] # (Auto) Eos # (Auto) Baso # (Auto) Absolute Nucleated RBC Nucleated RBC % PT INR Sodium Potassium Chloride Carbon Dioxide Anion Gap BUN Creatinine Estimated GFR (MDRD) Glucose Calcium Total Bilirubin AST ALT Alkaline Phosphatase Troponin I High Sens 3.7 B-Natriuretic Peptide Total Protein Albumin Globulin Albumin/Globulin Ratio PD Medical Decision Making - ED course Complexity details: reviewed old records, reviewed results, re-evaluated patient, considered differential, d/w patient ED course: Pleuritic chest pain and shortness of breath and patient with extensive medical history and complicated history of lung disease. Vital signs reviewed, EKG no STEMI. Due to patient's history and concerning story will order CTA. Labs reviewed, No acute findings identified. Chest x-ray negative for acute process. CT angio shows bullous emphysema as previously known to the patient, no obvious pulmonary embolism, however a new nodular consolidation seen in the left lung base, not previously seen on CT imaging from October 2022. Patient was informed of his abnormal CT result, radiology recommends repeat scan within 3 months to assess for progression. 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 Rx for pain sent with patient. Departure - Departure Disposition: 01 Home, Self Care Clinical Impression: Pulmonary nodule Chest pain Qualifiers: Chest pain type: chest pain on breathing Qualified Code(s): R07.1 - Chest pain on breathing Condition: Stable Instructions: ED Chest Pain Atypical Unkn Cause, ED Nodule Solitary Pulmonary Prescriptions: Oxycodone HCl/Acetaminophen [Percocet 5-325 mg Tablet] 1 - 2 each PO Q6H PRN #14 tablet PRN Reason: pain Comments: YOUR CT TODAY SHOWED NO SIGN OF PULMONARY EMBOLISM, AORTIC DISEASE, OR COLLAPSED LUNG. IT DID NOTE A NEW 3CM LEFT SIDED PULMONARY NODULE. I DO NOT KNOW IF THIS COULD POSSIBLY BE RELATED TO YOUR SYMPTOMS. YOU WILL NEED TO FOLLOW UP WITH YOUR PRIMARY CARE PHYSICIAN AND ENVIRONMENTAL ISSUES INSTRUCTOR. YOU WILL NEED A REPEAT SCAN IN 3 MONTHS. Forms: PCP List Discharge Date/Time: 08/23/23 19:02
--- NOTE | 2023-08-23 18:10 | XRAY Report ---
PROCEDURE: Chest 1 View X-Ray INDICATIONS: dyspnea, L chest pain TECHNIQUE: One view of the chest was acquired. COMPARISON: 02/16/2023 FINDINGS: Surgical changes and devices: None. Lungs and pleura: Mild bibasilar atelectasis and or infiltrate associated with elevated left hemidia phragm Mediastinum: Mediastinal contours appear normal. Heart size is normal. Bones and chest wall: No suspicious bony lesions. Overlying soft tissues appear unremarkable. IMPRESSION: Mild bibasilar atelectasis and or infiltrate Reviewed by: Rk Leblanc MD on 08/23/2023 5:09 PM AKST Approved by: Rk Leblanc MD on 08/23/2023 5:09 PM [place] Station ID: [id number]
--- NOTE | 2023-08-23 18:17 | CT Report ---
PROCEDURE: CT angiogram chest with contrast INDICATIONS: PLEURITIC CHEST PAIN TECHNIQUE: Helical axial CT of the chest was obtained during the angiographic phase of an intravenou s contrast injection. Images were reformatted in multiple planes, and a MIP series was also utilized . Radiation dose reduction was achieved utilizing automated exposure control or adjustment of mA and/ or kV according to patient size. COMPARISON: 11/11/2022 FINDINGS: Vasculature: No evidence of pulmonary embolism, aortic dissection or aneurysm. Lungs and pleura: Bullous emphysema present with bilateral lower lobe scarring. Left lower lobe nodul ar consolidation measures 3.2 x 1.6 cm, new from the prior exam. Mediastinum: Heart size is normal. No pericardial effusion. No large vessel abnormality. No mediastin al adenopathy by size criteria. Dense coronary artery vascular calcification present. Chest wall and lower neck: Thyroid is unremarkable. No axillary or supraclavicular adenopathy by size . Bones: No aggressive osseous abnormality. Upper Abdomen: Unremarkable. IMPRESSION: No evidence of pulmonary embolism, aortic dissection or aneurysm. Stable advanced bullous pulmonary emphysema with bilateral atelectasis and or scarring. Nodular consolidation in the left lower lobe measures 3.2 cm. Consider 3 month follow-up Reviewed by: Rk Leblanc MD on 08/23/2023 5:15 PM [place] Approved by: Rk Leblanc MD on 08/23/2023 5:15 PM [place] Station ID: [id number]
[2023-08-23] MEDS ORDERED: iohexoL-300 100 ML VIAL IVP ONE (18:23)
[2023-08-23] MEDS ORDERED: oxyCODONE/ACET 5/325 Prepack 4 PO STA (18:37)
[2023-08-23 19:08] VITALS: BP 136/29; O2SAT 95
== END 2023-08-23 19:02 | disposition home or self-care (01) ==
LOC: ED 16:13
DX: R91.1 Solitary pulmonary nodule (principal); R07.1 Chest pain on breathing
CPT/HCPCS: 36415; 71045; 71275; 80053; 83880; 84484; 85025; 85610; 93005; 99284; Q9967

== ENCOUNTER 2023-09-06 07:51 | Outpatient (CLI) | payer OTHER ==
--- NOTE | 2023-09-06 10:17 | Ultrasound Report ---
PROCEDURE: Abdomen Limited INDICATIONS: CIRRHOSIS TECHNIQUE: Real-time focused scanning was performed of the abdomen, with image documentation. COMPARISONS: CT abdomen and pelvis on November 11, 2022. Abdominal ultrasound on March 06, 2017 FINDINGS: Liver: Nodular liver contour with coarse and echogenic hepatic echotexture. No solid mass on the pro vided images. Hepatic veins are patent. Main portal vein is patent with hepatopedal flow. Gallbladder: No stones or sludge. Wall thickness is 3 mm. No pericholecystic fluid. Biliary ducts: Intrahepatic bile ducts are non-dilated. Extrahepatic bile duct caliber measures 4.1 mm. Normal is 6-7 mm or less in diameter, or 10 mm or less post-cholecystectomy. Pancreas: Visualized portions of the pancreas are sonographically normal. Right kidney: Normal in size and echotexture. Right kidney measures 13.5 cm long. No hydronephrosis or nephrolithiasis. No solid masses. No complex renal cystic lesions which require follow-up. IVC: Intrahepatic inferior vena cava is patent. Miscellaneous: No free abdominal fluid. IMPRESSION: 1. Cirrhotic liver morphology. No sonographic evidence of solid mass. Main portal vein is patent with hepatopedal flow. 2. No evidence of cholecystitis. Gallbladder wall thickness is at the upper limits of normal, likely reactive in the setting of liver disease. No biliary ductal dilatation. Reviewed by: Sangeetha Patel MD on 09/06/2023 10:16 AM PST Approved by: Sangeetha Patel MD on 09/06/2023 10:16 AM PST Station ID: [id number]
== END 2023-09-06 07:52 | disposition home or self-care (01) ==
LOC: DI 07:51
PROVIDERS: ATTEND Internal Medicine Gastroenterology
DX: K74.60 Unspecified cirrhosis of liver (principal)

== ENCOUNTER 2023-11-26 15:59 | Outpatient (CLI) | payer OTHER ==
--- NOTE | 2023-11-26 16:38 | CT Report ---
PROCEDURE: Chest WO INDICATIONS: DYSPNEA TECHNIQUE: A CT scan of the chest was performed. Intravenous contrast media was not administered. Images were re corded and evaluated at appropriate window settings. Reformats: axial MIP of the chest, coronal and s agittal. For radiation dose reduction, the following was used: automated exposure control, adjustment of mA and/or kV according to patient size. COMPARISON: CT chest 08/23/2023. FINDINGS: Image quality: Diagnostic. Chest wall and lower neck: No thyroid nodule which requires sonographic follow up. No axillary or sup raclavicular adenopathy by size. Lungs and pleura: No consolidation. No pleural effusions. No pneumothorax. Severe bullous emphysemat ous changes, most pronounced in the right. Linear atelectasis versus scarring at the bilateral lung b ases. Resolution of left lower lobe consolidation. Right lower lobe. Fissural nodule measuring 4 mm is stable. Mediastinum: Heart size is normal. Severe coronary calcifications. No pericardial effusion. No large vessel abnormality. Mild atherosclerotic vascular calcifications. No mediastinal adenopathy by size c riteria. Bones: No aggressive osseous abnormality. Degenerative changes of the spine. Diffusely decreased osse ous mineralization. Upper Abdomen: Unremarkable. IMPRESSION: 1.Resolution of prior left lower lobe consolidative opacity. 2.Redemonstration of severe bullous emphysematous changes. Reviewed by: Brando Caro MD on 11/26/2023 4:36 PM PST Approved by: Brando Caro MD on 11/26/2023 4:36 PM PST Station ID: [id number]
== END 2023-11-26 16:00 | disposition home or self-care (01) ==
LOC: DI 15:59
PROVIDERS: ATTEND Internal Medicine
DX: J43.9 Emphysema, unspecified (principal)